=== PATIENT | male | born 1950 | race Caucasian/White ===

== ENCOUNTER 2018-05-24 11:49 | Inpatient (IN) | payer OTHER, MEDICARE ==
[2018-05-24] MEDS ORDERED: NS 1,000 ML IV ONE (13:02)
--- NOTE | 2018-05-24 13:02 | EDPHY ---
H & P Time Seen by Provider: 05/24/18 12:50 HPI/ROS: Chief complaint. Syncope HPI. 67-year-old male presents emergency department by EMS after having syncopal episode. He was at [facility] to have chemotherapy pump removed. The begins 1st week of chemo for throat cancer 5 days ago. He has an aversion to needles. Nurse was removing the pump and noted that there was some pus around the insertion site. He began to feel lightheaded and then had about a 1 min syncopal episode. No chest pain or shortness of breath. He tells me he has not slept very well the last 3 nights secondary to unusual headache. He has headache left-sided neck stiffness. He has no fever cough. He has had previous syncope with shots. 3 large bowel movements this morning which was somewhat unusual. No abdominal pain ROS 10 systems were reviewed and negative with the exception of the elements mentioned in the history of present illness Past Medical/Surgical History: Throat cancer, remote history stomach cancer. Pacemaker for atrial fibrillation Social History: , nonsmoker, no alcohol Smoking Status: Never smoked Physical Exam: General Appearance: Alert well-developed male mild distress. Signs show blood pressure initially to 97 78 Eyes: Pupils equal and round no pallor or injection. ENT, pharynx without injection. Mucous membranes are moist Respiratory: There are no retractions, lungs are clear to auscultation. Cardiovascular: Regular rate and rhythm. Gastrointestinal: Abdomen is soft and nontender, no masses, bowel sounds normal. Neurological: Awake and alert, sensory and motor exams grossly normal. Skin: Warm and dry, no rashes. Musculoskeletal: Left-sided neck stiffness Extremities symmetrical, full range of motion. Psychiatric: Patient is oriented X 3, there is no agitation. Constitutional: Initial Vital Signs Temperature (C) 36.8 C 05/24/18 11:53 Heart Rate 71 05/24/18 11:53 Respiratory Rate 17 05/24/18 11:53 Blood Pressure 97/8 L 05/24/18 11:53 O2 Sat (%) 95 05/24/18 11:53 O2 Delivery Mode Room Air Allergies/Adverse Reactions: Penicillins Allergy (Intermediate, Verified 05/24/18 19:30) Unknown zinc Allergy (Intermediate, Verified 05/24/18 19:30) Vomiting Home Medications: Medication Instructions Recorded Acetaminophen [Tylenol ES 500 mg 1,000 mg PO Q6 PRN 05/24/18 (*)] Chemo 0 mg IV Q14D 05/24/18 Dabigatran Etexilate Mesyl 150 mg PO BID 05/24/18 [Pradaxa 150 MG (*)] Fluticasone Nasal [Flonase Nasal 1 sprays NASAL DAILY 05/24/18 [place] (RX)] Herbals/Supplements -Info Only 1 ea PO DAILY 05/24/18 Lisinopril [Zestril 10 mg (*)] 10 mg PO DAILY 05/24/18 Loperamide HCl [Imodium 2 mg (*)] 2 mg PO PRN PRN 05/24/18 Loratadine [Claritin 10 mg] 10 mg PO DAILY PRN 05/24/18 Propylene Glycol [Systane Balance] 1 drop OP BID PRN 05/24/18 Medical Decision Making - Diagnostics EKG Interpretation: EKG interpreted by me shows atrial fibrillation/flutter with paced rhythm. Left axis deviation. Interventricular conduction delay. No arrhythmia. No significant ST elevation or depression. Ventricular response is 70 Imaging Results: Imaging Impressions Chest X-Ray 05/24/18 13:02 Impression: Moderate enlargement of the cardiac silhouette. No acute cardiopulmonary abnormality identified. Head CT 05/24/18 13:16 Impression: There is no acute intracranial abnormality identified on this unenhanced CT evaluation. If there is further clinical concern regarding the patient's symptoms, MR imaging is suggested, if not otherwise contraindicated. Findings were discussed with ZANA WILKINSON MD at 15:50, on 05/24/2018. Head CTA 05/24/18 13:16 Impression: 1. There is no hemodynamically significant ICA stenosis. 2. Patent vertebral arteries. CT ANGIOGRAPHY OF THE BRAIN: The major vessels of the barrow of [place] are well visualized, and there is no aneurysm, vascular malformation, flow-limiting stenosis, or acute occlusion identified. The distal cervical, petrous, cavernous , and supraclinoid portions of the internal carotid arteries are patent, with some minimal atherosclerotic calcific plaque involving the cavernous carotid arteries and the proximal supraclinoid ICAs. The A1 and A2 segments in the anterior communicating artery are patent as are the M1, M2, and M3 trifurcation vessels. With regards to the posterior circulation, the distal vertebral arteries are patent. The posterior inferior cerebellar arteries, vertebrobasilar confluence, anterior inferior cerebellar arteries, basilar artery, superior cerebellar arteries, and the posterior cerebral arteries are patent. 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 The dural venous sinuses appear patent. Impression: Negative CT angiogram of the brain. CT Source Data: There is a right IJ central venous catheter Mediport present, and there is also a dual-lead left subclavian transvenous pacemaker. There is minimal biapical pleural parenchymal fibrosis and calcification. The visualized lung apices are otherwise unremarkable. The visualized superior mediastinal structures are unremarkable. There is dental amalgam resulting in beam hardening artifact limiting the oral cavity. The thyroid gland appears normal. The epiglottis, hypopharynx, larynx, and trachea appear normal. The salivary glands appear normal. There is a 9 mm left supraclavicular lymph node on series 5, image 198 adjacent to an 11 mm lymph node. At the base of the left neck, there is an irregularly marginated 2.1 x 2.2 cm abnormal-appearing lymph node ( noted on image 56, series 5). There is also left cervical lymphadenopathy which extends more superiorly (for example, on series 5, images 329 and 355). Please also reference coronal series 6, image 68. Correlation with prior studies would be helpful in this patient with a history of "throat cancer." A PET/CT scan may also be of benefit in further evaluation, as clinically directed. The osseous structures are notable for degenerative disk disease at C3-4, C4-C5, C5-C6, and C6-C7, with accompanying facet hypertrophy and uncovertebral degenerative spondylosis resulting in some variable neural foraminal stenoses. There is no lytic or blastic lesion. Measurement of carotid stenosis is based on the residual internal carotid diameter with [place] Symptomatic Carotid Endarterectomy Trial (NASCET) based stenosis levels. Findings were discussed with ZANA WILKINSON MD at 16:23, on 05/24/2018. Neck CTA 05/24/18 13:16 Impression: 1. There is no hemodynamically significant ICA stenosis. 2. Patent vertebral arteries. CT ANGIOGRAPHY OF THE BRAIN: The major vessels of the barrow of [place] are well visualized, and there is no aneurysm, vascular malformation, flow-limiting stenosis, or acute occlusion identified. The distal cervical, petrous, cavernous , and supraclinoid portions of the internal carotid arteries are patent, with some minimal atherosclerotic calcific plaque involving the cavernous carotid arteries and the proximal supraclinoid ICAs. The A1 and A2 segments in the anterior communicating artery are patent as are the M1, M2, and M3 trifurcation vessels. With regards to the posterior circulation, the distal vertebral arteries are patent. The posterior inferior cerebellar arteries, vertebrobasilar confluence, anterior inferior cerebellar arteries, basilar artery, superior cerebellar arteries, and the posterior cerebral arteries are patent. 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 The dural venous sinuses appear patent. Impression: Negative CT angiogram of the brain. CT Source Data: There is a right IJ central venous catheter Mediport present, and there is also a dual-lead left subclavian transvenous pacemaker. There is minimal biapical pleural parenchymal fibrosis and calcification. The visualized lung apices are otherwise unremarkable. The visualized superior mediastinal structures are unremarkable. There is dental amalgam resulting in beam hardening artifact limiting the oral cavity. The thyroid gland appears normal. The epiglottis, hypopharynx, larynx, and trachea appear normal. The salivary glands appear normal. There is a 9 mm left supraclavicular lymph node on series 5, image 198 adjacent to an 11 mm lymph node. At the base of the left neck, there is an irregularly marginated 2.1 x 2.2 cm abnormal-appearing lymph node ( noted on image 56, series 5). There is also left cervical lymphadenopathy which extends more superiorly (for example, on series 5, images 329 and 355). Please also reference coronal series 6, image 68. Correlation with prior studies would be helpful in this patient with a history of "throat cancer." A PET/CT scan may also be of benefit in further evaluation, as clinically directed. The osseous structures are notable for degenerative disk disease at C3-4, C4-C5, C5-C6, and C6-C7, with accompanying facet hypertrophy and uncovertebral degenerative spondylosis resulting in some variable neural foraminal stenoses. There is no lytic or blastic lesion. Measurement of carotid stenosis is based on the residual internal carotid diameter with [place] Symptomatic Carotid Endarterectomy Trial (NASCET) based stenosis levels. Findings were discussed with ZANA WILKINSON MD at 16:23, on 05/24/2018. Noncontrast head CT and CT angiography of brain and neck shows no evidence of dissection or clot. He does have left anterior cervical adenopathy Procedures: No old records available for review IV normal saline, monitor ED Course/Re-evaluation: Potassium is 2.1. Patient will be given potassium and magnesium IV as well as oral potassium Patient remained stable. He and I discussed imaging and lab results. We discussed treatment plan including recommendation for admission for syncope and significant hypokalemia. He expresses understanding and agreement I consulted discussed case Dr. Mills, hospitalist who agrees to the admission Differential Diagnosis: Syncope and I considered acute coronary syndrome and arrhythmia. Patient has significant hypokalemia. He had headache on blood thinners as well as left neck pain. I considered intracranial bleeding and carotid artery dissection - Data Points Laboratory Results: Laboratory Results 05/24/18 14:00 05/24/18 14:39 05/24/18 05/24/18 05/24/18 14:39 14:00 14:00 WBC RBC Hgb Hct MCV MCH MCHC RDW Plt Count MPV Neut % (Auto) Lymph % (Auto) [place] % (Auto) Eos % (Auto) Baso % (Auto) Nucleat RBC Rel Count Absolute Neuts (auto) Absolute Lymphs (auto) Absolute Monos (auto) Absolute Eos (auto) Absolute Basos (auto) Absolute Nucleated RBC Immature Gran % Immature Gran # PT 18.6 SEC H SEC (12.0-15.0) INR 1.54 H (0.83-1.16) APTT 33.4 SEC SEC (23.0-38.0) Sodium 134 mEq/L L mEq/L REJ (135-145) Potassium 2.1 mEq/L L* mEq/L REJ (3.5-5.2) Chloride 94 mEq/L L mEq/L REJ (97-110) Carbon Dioxide 29 mEq/l mEq/l REJ (22-31) Anion Gap 11 mEq/L mEq/L REJ (6-14) BUN 25 mg/dL H mg/dL REJ (7-23) Creatinine 1.5 mg/dL H mg/dL REJ (0.7-1.3) Estimated GFR 47 REJ Glucose 109 mg/dL H mg/dL REJ (70-100) Calcium 8.3 mg/dL L mg/dL REJ (8.5-10.4) POC Troponin I 05/24/18 05/24/18 14:00 13:10 WBC 4.97 10^3/uL 10^3/uL (3.80-9.50) RBC 5.27 10^6/uL 10^6/uL (4.40-6.38) Hgb 17.1 g/dL g/dL (13.7-17.5) Hct 49.5 % % (40.0-51.0) MCV 93.9 fL fL (81.5-99.8) MCH 32.4 pg pg (27.9-34.1) MCHC 34.5 g/dL g/dL (32.4-36.7) RDW 12.6 % % (11.5-15.2) Plt Count 102 10^3/uL L 10^3/uL (150-400) MPV 11.6 fL fL (8.7-11.7) Neut % (Auto) 87.1 % H % (39.3-74.2) Lymph % (Auto) 8.9 % L % (15.0-45.0) [place] % (Auto) 1.8 % L % (4.5-13.0) Eos % (Auto) 0.2 % L % (0.6-7.6) Baso % (Auto) 0.4 % % (0.3-1.7) Nucleat RBC Rel Count 0.0 % % (0.0-0.2) Absolute Neuts (auto) 4.33 10^3/uL 10^3/uL (1.70-6.50) Absolute Lymphs (auto) 0.44 10^3/uL L 10^3/uL (1.00-3.00) Absolute Monos (auto) 0.09 10^3/uL L 10^3/uL (0.30-0.80) Absolute Eos (auto) 0.01 10^3/uL L 10^3/uL (0.03-0.40) Absolute Basos (auto) 0.02 10^3/uL 10^3/uL (0.02-0.10) Absolute Nucleated RBC 0.00 10^3/uL 10^3/uL (0-0.01) Immature Gran % 1.6 % H % (0.0-1.1) Immature Gran # 0.08 10^3/uL 10^3/uL (0.00-0.10) PT INR APTT Sodium Potassium Chloride Carbon Dioxide Anion Gap BUN Creatinine Estimated GFR Glucose Calcium POC Troponin I 0.02 ng/mL ng/mL (0.00-0.08) Medications Given: Potassium Chloride 20 meq/ (Sodium Chloride) 1,000 mls @ 125 mls/hr IV CONT BUFFY Stop: 11/20/18 15:59 Last Admin: 05/24/18 16:30 Dose: 1,000 mls Potassium Chloride (Potassium Cl 10 Meq (Premix)) 100 mls @ 100 mls/hr IV Q1H BUFFY Stop: 05/24/18 20:59 Last Admin: 05/24/18 19:03 Dose: 100 mls Discontinued Medications Sodium Chloride (Ns) 1,000 mls @ 0 mls/hr IV EDNOW ONE; Wide Open PRN Reason: Protocol Stop: 05/24/18 13:03 Last Admin: 05/24/18 13:22 Dose: 1,000 mls Magnesium Sulfate/Dextrose (Magnesium Sulf 1 Gm (Premix)) 100 mls @ 100 mls/hr IV EDNOW ONE Stop: 05/24/18 16:41 Last Admin: 05/24/18 16:52 Dose: 100 mls Potassium Chloride (Klor-Con) 20 meq PO ONCE ONE Stop: 05/24/18 15:43 Last Admin: 05/24/18 16:55 Dose: 20 meq Potassium Chloride (Klor-Con) 20 meq PO ONCE ONE Stop: 05/24/18 19:01 Last Admin: 05/24/18 19:03 Dose: 20 meq Point of Care Test Results: Chemistry 05/24/18 13:10 POC Troponin I 0.02 ng/mL ng/mL (0.00-0.08) Departure - Departure Disposition: [facility] Inpatient Acute Clinical Impression: Hypokalemia Syncope Qualifiers: Syncope type: vasovagal syncope Qualified Code(s): R55 - Syncope and collapse Condition: Good
--- NOTE | 2018-05-24 13:55 | CPEKG ---
Test Reason : OPEN Blood Pressure : / mmHG Vent. Rate : 070 BPM Atrial Rate : 087 BPM P-R Int : 162 ms QRS Dur : 195 ms QT Int : 455 ms P-R-T Axes : 000 -62 119 degrees QTc Int : 491 ms Afib/flutter and ventricular-paced rhythm Confirmed by Zana Veras ([id number]) on 05/24/2018 1:55:09 PM Referred By: ZANA VERAS Confirmed By:Zana Veras
[2018-05-24 14:23] LABS: PLATELET COUNT 102 10^3/uL (150-400)
[2018-05-24 14:31] LABS: INR 1.54 (0.83-1.16); PROTIME(PATIENT) 18.6 SEC (12.0-15.0)
[2018-05-24] MEDS ORDERED: IOHEXOL 350mgI/ML (OMNIPAQUE) 150 ML BTL IV ONE (15:06)
[2018-05-24] MEDS ORDERED: MAGNESIUM SULF 1 GM/DEXTROSE 100 ML IV ONE (15:42)
[2018-05-24] MEDS ORDERED: POTASSIUM CL 20 MEQ TAB PO ONE ×2 (15:42→19:00)
[2018-05-24] MEDS ORDERED: POTASSIUM Cl (KCl) 20 MEQ in 1/2 NS 1,000 ML IV SCH (16:00)
[2018-05-24] MEDS ORDERED: PROTOCOL MAGNESIUM 1 DOSE IV PRN (17:27)
[2018-05-24] MEDS ORDERED: PROTOCOL CALCIUM 1 DOSE IV PRN (17:27)
[2018-05-24] MEDS ORDERED: PROMETHAZINE HCL 25 MG/ML INJ IVP PRN (17:27)
[2018-05-24] MEDS ORDERED: oxyCODONE IR 5 MG TAB PO PRN (17:27)
[2018-05-24] MEDS ORDERED: HYDROmorphONE/DILAUDID 1 MG/ML INJ IVP PRN (17:27)
[2018-05-24] MEDS ORDERED: LORazepam 2 MG/ML INJ IVP PRN (17:27)
[2018-05-24] MEDS ORDERED: ACETAMINOPHEN 325 MG TAB PO PRN (17:27)
[2018-05-24] MEDS ORDERED: PROTOCOL K PHOSPHATE 1 DOSE IV PRN (17:27)
[2018-05-24] MEDS ORDERED: ONDANSETRON 4 MG/2 ML VIAL IVP PRN (17:27)
[2018-05-24] MEDS ORDERED: PROTOCOL POTASSIUM 1 DOSE MISC PRN (17:27)
[2018-05-24] MEDS ORDERED: NON-FORMULARY NEW DRUG (Loratadine [Claritin 10 Mg] 10 MG) PO PRN (17:30)
[2018-05-24] MEDS ORDERED: (Propylene Glycol [Systane Balance] 1 DROP) OP PRN (17:30)
[2018-05-24] MEDS: POTASSIUM Cl (KCl) 100 ML IV SCH ×2 (19:03→20:50)
[2018-05-24] MEDS ORDERED: POTASSIUM CL 10 MEQ TAB PO ONE (19:25)
--- NOTE | 2018-05-24 19:39 | PDGENHP ---
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 Pineda his treatment is for GIST--he did have a biopsy of a cervical LN recently with path showing SCC) for which he has recently started chemotherapy with taxotere, 5FU and marshall. He was previously on imatinib without appropriate response. He was here in [place] for a pump removal for his chemotherapy treatment, he generally gets his care at another [facility] location. While undergoing the pump change there was an introduction of a needle to his port, patient has a needle phobia and shortly after seeing the needle he thought he might faint, he became a bit diaphoretic and his noticed him slump over in his chair. She and he are both unclear if he had a LOC at that time. He was not responsive for about a minute, the MD pay station attendant was notified and he was sent to the ER by ambulance at that point. The patient and his are both somewhat difficult historians but it sounds like patient has been having diarrhea since starting this chemotherapy regimen, he has been taking loperamide for the diarrhea and had one or two days without diarrhea, but again today had 3 large loose stools. He has been eating well, but not drinking as much fluid as usual. He states he has had issues with hiccups and was avoiding drinking too much as it can exacerbate the hiccups. He has had some vomiting yesterday and today. He also has had severe headache for the last several days that was thought to be possibly side effect to his chemo meds or to meds he is taking for nausea. He denies chest pain, he did have palpitations a bit earlier today. He has no sob, no fever, no cough, no urinary complaints. History Information - Allergies/Home Medication List Allergies/Adverse Reactions: Penicillins Allergy (Intermediate, Verified 05/24/18 19:30) Unknown zinc Allergy (Intermediate, Verified 05/24/18 19:30) Vomiting Home Medications: Acetaminophen [Tylenol ES 500 mg (*)] 1,000 mg PO Q6 PRN 05/24/18 [Last Taken 07:00] Chemo 0 mg IV Q14D 05/24/18 [Last Taken 05/22/18] Dabigatran Etexilate Mesyl [Pradaxa 150 MG (*)] 150 mg PO BID 05/24/18 [Last Taken 05/24/18 09:00] Fluticasone Nasal [Flonase Nasal [place] (RX)] 1 sprays NASAL DAILY 05/24/18 [ Last Taken 05/24/18 09:00] Herbals/Supplements -Info Only 1 ea PO DAILY 05/24/18 [Last Taken 05/24/18 08:00 ] Lisinopril [Zestril 10 mg (*)] 10 mg PO DAILY 05/24/18 [Last Taken 05/24/18 09: 00] Loperamide HCl [Imodium 2 mg (*)] 2 mg PO PRN PRN 05/24/18 [Last Taken 05/24/18 09:00] Loratadine [Claritin 10 mg] 10 mg PO DAILY PRN 05/24/18 [Last Taken 05/24/18 09: 00] Propylene Glycol [Systane Balance] 1 drop OP BID PRN 05/24/18 [Last Taken 08:00] I have personally reviewed and updated: family history, medical history, social history, surgical history - Past Medical History atrial fibrillation, arthritis, cancer (hx of stomach cancer, prostate cancer, GIST, ? throat cancer), hypertension - Surgical History Reports: cancer surgery, hernia repair, pacemaker/AICD Additional surgical history: partial gastrectomy for stomach cancer. tonsillectomy - Family History Positive for: non-pertinent - Social History Smoking Status: Never smoked Alcohol Use: Occasionally Drug Use: Marijuana Additional social history: x 45 years, accompanies him here Review of Systems Review of Systems: ROS: 10pt was reviewed & negative except for what was stated in HPI & below Physical Exam Physical Exam: Temp Pulse Resp BP Pulse Ox 36.9 C 70 18 133/88 H 94 05/24/18 16:55 05/24/18 18:30 05/24/18 16:55 05/24/18 16:55 05/24/18 16:55 Constitutional: no apparent distress, chronically ill appearing Eyes: PERRL, anicteric sclera Ears, Nose, Mouth, Throat: moist mucous membranes, hearing normal Cardiovascular: regular rate and rhythym, no murmur, rub, or gallop, No edema Respiratory: no respiratory distress, no rales or rhonchi, clear to auscultation Gastrointestinal: normoactive bowel sounds, soft, non-tender abdomen, no palpable masses Genitourinary: no bladder tenderness Skin: warm, normal color Musculoskeletal: full muscle strength Neurologic: AAOx3 Psychiatric: interacting appropriately, not anxious, not encephalopathic Lab Data & Imaging Review 05/24/18 14:00 05/24/18 18:29 WBC 4.97 10^3/uL (3.80-9.50) 05/24/18 14:00 RBC 5.27 10^6/uL (4.40-6.38) 05/24/18 14:00 Hgb 17.1 g/dL (13.7-17.5) 05/24/18 14:00 Hct 49.5 % (40.0-51.0) 05/24/18 14:00 MCV 93.9 fL (81.5-99.8) 05/24/18 14:00 MCH 32.4 pg (27.9-34.1) 05/24/18 14:00 MCHC 34.5 g/dL (32.4-36.7) 05/24/18 14:00 RDW 12.6 % (11.5-15.2) 05/24/18 14:00 Plt Count 102 10^3/uL (150-400) L 05/24/18 14:00 MPV 11.6 fL (8.7-11.7) 05/24/18 14:00 Neut % (Auto) 87.1 % (39.3-74.2) H 05/24/18 14:00 Lymph % (Auto) 8.9 % (15.0-45.0) L 05/24/18 14:00 [place] % (Auto) 1.8 % (4.5-13.0) L 05/24/18 14:00 Eos % (Auto) 0.2 % (0.6-7.6) L 05/24/18 14:00 Baso % (Auto) 0.4 % (0.3-1.7) 05/24/18 14:00 Nucleat RBC Rel Count 0.0 % (0.0-0.2) 05/24/18 14:00 Absolute Neuts (auto) 4.33 10^3/uL (1.70-6.50) 05/24/18 14:00 Absolute Lymphs (auto) 0.44 10^3/uL (1.00-3.00) L 05/24/18 14:00 Absolute Monos (auto) 0.09 10^3/uL (0.30-0.80) L 05/24/18 14:00 Absolute Eos (auto) 0.01 10^3/uL (0.03-0.40) L 05/24/18 14:00 Absolute Basos (auto) 0.02 10^3/uL (0.02-0.10) 05/24/18 14:00 Absolute Nucleated RBC 0.00 10^3/uL (0-0.01) 05/24/18 14:00 Immature Gran % 1.6 % (0.0-1.1) H 05/24/18 14:00 Immature Gran # 0.08 10^3/uL (0.00-0.10) 05/24/18 14:00 PT 18.6 SEC (12.0-15.0) H 05/24/18 14:00 INR 1.54 (0.83-1.16) H 05/24/18 14:00 APTT 33.4 SEC (23.0-38.0) 05/24/18 14:00 Sodium 134 mEq/L (135-145) L 05/24/18 14:39 Potassium 2.4 mEq/L (3.5-5.2) L* 05/24/18 18:29 Chloride 94 mEq/L (97-110) L 05/24/18 14:39 Carbon Dioxide 29 mEq/l (22-31) 05/24/18 14:39 Anion Gap 11 mEq/L (6-14) 05/24/18 14:39 BUN 25 mg/dL (7-23) H 05/24/18 14:39 Creatinine 1.5 mg/dL (0.7-1.3) H 05/24/18 14:39 Estimated GFR 47 05/24/18 14:39 Glucose 109 mg/dL (70-100) H 05/24/18 14:39 Calcium 8.3 mg/dL (8.5-10.4) L 05/24/18 14:39 POC Troponin I 0.02 ng/mL (0.00-0.08) 05/24/18 13:10 Visualized and Interpreted Chest x-ray results: Yes Chest X-Ray results: no infiltrate Visualized and Interpreted imaging results: Yes Interpretation: head CT/head and neck CTA: no acute abnormality in head, no significant stenosis, cervical LAD and one irregular appearing LN Visualized and Interpreted EKG results: Yes EKG additional interpertation: a fib/flutter and v paced Assessment & Plan Assessment: 67 yo M with PMH of GIST tumor currently undergoing chemotherapy with taxotere, 5 FU and marshall with recent diarrhea related to 5FU likely presenting with vasovagal episode and severe hypokalemia # severe hypokalemia: in setting of several days or longer of diarrhea per oncology, repleting currently, will continue to monitor, getting IV Magnesium and will monitor mag levels as well # vasovagal episode: occurred in the setting of medical procedure with needles being a trigger for him, did become hypotensive during that episode as well which has resolved, will monitor on tele as well but suspect this is most c/w a vagal event rather than a primary cardiac etiology # emily: presumably this is acute in the setting of diarrhea although no recent BMP found on corhio, will run NS overnight and monitor I/Os and recheck in am, holding lisinopril # diarrhea: likely due to chemo as above, doubt c diff but if increases will send for that # GIST tumor: currently undergoing chemo as above, discussed with Dr. Pineda, oncology will be following and will see in am # a fib: with PPM, on AC, rate controlled # hx of stomach and prostate cancer # HTN: BP has been largely wnl but some lability and did get very low at [facility] today with vagal episode, holding lisinopril and monitoring # IP status Patient new to my care. Old records reviewed and summarized as above. Care plan reviewed with ER doctor and Dr. Pineda, further hx obtained from present at bedside.
[2018-05-24] MEDS: LORazepam 0.5 MG TAB PO PRN ×2 (20:46→22:01)
[2018-05-24] MEDS: ONDANSETRON DISINTEGRATING 4 MG TAB PO PRN (20:48)
[2018-05-24] MEDS: DABIGATRAN ETEXILATE MESYL 150 MG CAP PO SCH (20:48)
[2018-05-24] MEDS: NS 1,000 ML IV SCH (20:51)
[2018-05-24] MEDS: HYDROCODONE/APAP 5/325 TAB PO PRN ×2 (23:12→23:39)
[2018-05-25] MEDS ORDERED: POTASSIUM CL 20 MEQ TAB PO ONE (02:09)
[2018-05-25] MEDS: NS 1,000 ML IV SCH (03:05)
[2018-05-25] MEDS ORDERED: LISINOPRIL 10 MG TAB PO SCH (09:00)
[2018-05-25 09:25] LABS: PLATELET COUNT 108 10^3/uL (150-400)
[2018-05-25] MEDS: DABIGATRAN ETEXILATE MESYL 150 MG CAP PO SCH ×2 (09:32→20:44)
--- NOTE | 2018-05-25 09:37 | PDMN ---
Medical Necessity Medical necessity: [facility] Medical Oncology: 67 yo w/ GIST currently on chemo c/o several days diarrhea and syncope. Eval reveals severe hypokalemia w/ K 2.1 , CHAPO w/ creat 1.5. IP status for dehydration w/ severe electrolyte imbalance, replacements started, IVF, monitor on tele, anticipate>2MN for monitoring and tx of the above. Hx afib, stomach ca, prostate ca, GIST currently getting tx w / chemo, HTN, pacer
[2018-05-25] MEDS ORDERED: POTASSIUM CL 10 MEQ TAB PO ONE ×2 (10:08→20:20)
[2018-05-25] MEDS ORDERED: CALCIUM GLUCONATE 50 ML IV ONE (10:21)
[2018-05-25] MEDS: FLUTICASONE NASAL 120 SPRAYS/16 GM MDI EACHNARE SCH (10:22)
[2018-05-25] MEDS: MBX SOLN 30 ML BOTTLE PO PRN ×3 (12:18→19:39)
--- NOTE | 2018-05-25 12:26 | ASMTCMCOM ---
CM Note CM Note Notes: Patient admitted after likely vasovagal event while at [facility]. 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 He lives with his Martha and is normally indepdendent. PT has cleared for home. No d/c needs. Date Signed: 05/25/2018 12:25 PM Electronically Signed By:Swapna Bellamy RN
[2018-05-25] MEDS: CETIRIZINE 10 MG TAB PO PRN (14:16)
[2018-05-25] MEDS: ONDANSETRON DISINTEGRATING 4 MG TAB PO PRN (14:16)
--- NOTE | 2018-05-25 17:59 | HOSPPROG ---
Hospitalist Progress Note Assessment/Plan: 67 yo M with PMH of GIST tumor currently undergoing chemotherapy with taxotere, 5 FU and [place] with recent diarrhea related to 5FU likely presenting with vasovagal episode and severe hypokalemia. 1. Severe hypokalemia: Improving with supplementation but still low and not eating much - Replete per protocol, follow Mg levels as well 2. Vasovagal episodes - PT/OT - recommending home 3. CHAPO: Improving with fluids. Monitor. 4. Contact dermatitis: Involving right chest. Removed tape. 5. Loose stools: Only a few. Likely chemo related. Will hold on checking C diff. 6. Leukopenia, thrombocytopenia: Related to chemo. 7. GIST tumor: Followed by [facility]. Oncology consulted this admission. 8. Afib: Rates controlled. On OAC. 9. HTN: Holding lisinopril. 10. Etoh use: Was weaning himself off as outpt. 5-6 drinks/night previously. Not in withdrawal. 11. Headache: Trial flexeril with sleep. Likely d/t dehydration and stress. 12. Urinary frequency: UA without infection. Check PVR VTE ppx: systemic anticoagulation Code: full Dispo: Remain inpatient for close monitoring of electrolytes Subjective: Had another episode of LOC when getting IV in arm. Not eating a lot. Couple episodes of loose stools. Objective: Vital Signs Temp Pulse Resp BP Pulse Ox 37.3 C 70 18 143/86 H 92 05/25/18 16:00 05/25/18 16:00 05/25/18 16:00 05/25/18 16:00 05/25/18 16:00 Laboratory Results 05/25/18 08:05 05/25/18 16:02 05/24/18 05/25/18 05/26/18 05:59 05:59 05:59 Intake Total 3450 Output Total 1000 925 Balance 2450 -925 PT 18.6 SEC (12.0-15.0) H 05/24/18 14:00 INR 1.54 (0.83-1.16) H 05/24/18 14:00 - Physical Exam Constitutional: no apparent distress Eyes: PERRL, anicteric sclera, EOMI Ears, Nose, Mouth, Throat: moist mucous membranes, hearing normal, ears appear normal, no oral mucosal ulcers Cardiovascular: regular rate and rhythym, no murmur, rub, or gallop Respiratory: no respiratory distress, no rales or rhonchi, clear to auscultation Gastrointestinal: normoactive bowel sounds, soft, non-tender abdomen, no palpable masses Genitourinary: no bladder fullness, no bladder tenderness, no renal bruits Skin: rash (right chest), other (port c/d/i) Musculoskeletal: full muscle strength, no muscle tenderness, normal joint ROM Neurologic: AAOx3, sensation intact bilaterally ICD10 Worksheet Patient Problems: Problems Problem Status Onset Hypokalemia Acute Syncope Acute
[2018-05-25] MEDS: CYCLOBENZAPRINE 10 MG TAB PO SCH (20:44)
--- NOTE | 2018-05-25 21:36 | PDCONSULT ---
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 An FNA of the cervical lymph node biopsy on was positive for HPV associated squamous cell carcinoma. Given the locally advanced nature decision was made to start with that TPF induction chemotherapy with weekly IV fluids and magnesium. He started TPF induction chemotherapy on 03/18/2019 his magnesium on 03/17/2019 was 1.6. Shortly after starting chemotherapy he began having severe headaches with dizziness. He is also reporting some intermittent episodes of loose stool but no more than 3 bowel movements in any particular day. He has had difficulties with his bowels ever since being on Gleevec, in the past adjuvantly, for a gist tumor diagnosed in 2012 and therefore takes immodium off and on. Beyond these headaches and bouts of diarrhea/loose stool he is also had periods of decreased oral intake as well as polyuria most significantly affecting him at night. He is not on any diuretics however has a significant drinking history and decreased alcohol intake roughly 1 week or so ago. Patient went to have his 5-FU pump disconnected Friday at [facility]. 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 Physician was called to the infusion room and after placing him in reverse Trendelenburg position he regained consciousness. He was sent via ambulance to [facility] where he was found to be hypokalemic and hypomagnesemic. Patient currently reports feeling well he does not have a headache, no dizziness or lightheadedness. He has not had a bowel movement yet today. No other systemic symptoms. Past medical history: Hypertension Atrial fibrillation History of T3 N0 gist tumor diagnosed 01/26/2013 treated with adjuvant Gleevec History of alcohol abuse/alcoholism Past surgical history: Hernia Repair Partial Gastrectomy for GIST tumor removal Tonsillectomy Social History: Patient reports having 5-6 alcoholic beverages per evening up until quitting roughly 1 week ago. No history of IV drug use Family History: Father - pancreatic CA Paternal Aunt - stomach cancer Review of Systems: A complete 12 point ROS was negative unless indicated in the HPI Physical examination: Vital signs reviewed General: No acute distress nontoxic appearing male HEENT: Pupils are equal round and reactive to light no scleral icterus or conjunctival pallor is appreciated oral mucosa is moist without any evidence of oral pharyngeal lesions Neck: Supple Cardiovascular: Regular rate and rhythm without rubs thrills gallops or murmurs Chest: Clear to auscultation percussion bilateral posterior lungs Abdomen: Soft nontender nondistended without any hepatosplenomegaly Lymph: 2.5 centimeter left posterior cervical hard fixed lymph node was palpated Neurologic: Alert and oriented cranial nerves II through XII are intact Skin: patchy erythema extending from the right chest wall port towards the right neck Allergies and Medications Reviewed in EMR WBC 2.58 10^3/uL (3.80-9.50) L 05/25/18 08:05 RBC 4.55 10^6/uL (4.40-6.38) 05/25/18 08:05 Hgb 14.6 g/dL (13.7-17.5) 05/25/18 08:05 Hct 42.7 % (40.0-51.0) 05/25/18 08:05 MCV 93.8 fL (81.5-99.8) 05/25/18 08:05 MCH 32.1 pg (27.9-34.1) 05/25/18 08:05 MCHC 34.2 g/dL (32.4-36.7) 05/25/18 08:05 RDW 12.5 % (11.5-15.2) 05/25/18 08:05 Plt Count 108 10^3/uL (150-400) L 05/25/18 08:05 MPV 11.4 fL (8.7-11.7) 05/25/18 08:05 Neut % (Auto) 66.3 % (39.3-74.2) 05/25/18 08:05 Lymph % (Auto) 24.8 % (15.0-45.0) 05/25/18 08:05 [place] % (Auto) 2.7 % (4.5-13.0) L 05/25/18 08:05 Eos % (Auto) 2.3 % (0.6-7.6) 05/25/18 08:05 Baso % (Auto) 1.6 % (0.3-1.7) 05/25/18 08:05 Nucleat RBC Rel Count 0.0 % (0.0-0.2) 05/25/18 08:05 Absolute Neuts (auto) 1.71 10^3/uL (1.70-6.50) 05/25/18 08:05 Absolute Lymphs (auto) 0.64 10^3/uL (1.00-3.00) L 05/25/18 08:05 Absolute Monos (auto) 0.07 10^3/uL (0.30-0.80) L 05/25/18 08:05 Absolute Eos (auto) 0.06 10^3/uL (0.03-0.40) 05/25/18 08:05 Absolute Basos (auto) 0.04 10^3/uL (0.02-0.10) 05/25/18 08:05 Absolute Nucleated RBC 0.00 10^3/uL (0-0.01) 05/25/18 08:05 Immature Gran % 2.3 % (0.0-1.1) H 05/25/18 08:05 Immature Gran # 0.06 10^3/uL (0.00-0.10) 05/25/18 08:05 PT 18.6 SEC (12.0-15.0) H 05/24/18 14:00 INR 1.54 (0.83-1.16) H 05/24/18 14:00 APTT 33.4 SEC (23.0-38.0) 05/24/18 14:00 Sodium 133 mEq/L (135-145) L 05/25/18 08:05 Potassium 3.4 mEq/L (3.5-5.2) L 05/25/18 18:35 Chloride 105 mEq/L (97-110) 05/25/18 08:05 Carbon Dioxide 23 mEq/l (22-31) 05/25/18 08:05 Anion Gap 5 mEq/L (6-14) L 05/25/18 08:05 BUN 19 mg/dL (7-23) 05/25/18 08:05 Creatinine 1.1 mg/dL (0.7-1.3) 05/25/18 08:05 Estimated GFR > 60 05/25/18 08:05 Glucose 91 mg/dL (70-100) 05/25/18 08:05 Calcium 7.7 mg/dL (8.5-10.4) L 05/25/18 08:05 Ionized Calcium 0.99 MMOL/L (1.12-1.30) L 05/25/18 08:05 Phosphorus 2.8 mg/dL (2.5-4.5) 05/25/18 08:05 Magnesium 2.0 mg/dL (1.6-2.3) 05/25/18 08:05 POC Troponin I 0.02 ng/mL (0.00-0.08) 05/24/18 13:10 Urine Color YELLOW 05/25/18 15:45 Urine Appearance CLEAR 05/25/18 15:45 Urine pH 6.0 (5.0-7.5) 05/25/18 15:45 Ur Specific [place] 1.015 (1.002-1.030) 05/25/18 15:45 Urine Protein 1+ (NEGATIVE) H 05/25/18 15:45 Urine Ketones TRACE (NEGATIVE) H 05/25/18 15:45 Urine Blood 1+ (NEGATIVE) H 05/25/18 15:45 Urine Nitrate NEGATIVE (NEGATIVE) 05/25/18 15:45 Urine Bilirubin NEGATIVE (NEGATIVE) 05/25/18 15:45 Urine Urobilinogen NEGATIVE EU (0.2-1.0) 05/25/18 15:45 Ur Leukocyte Esterase NEGATIVE (NEGATIVE) 05/25/18 15:45 Urine RBC 3-5 /hpf (0-3) H 05/25/18 15:45 Urine WBC 1-3 /hpf (0-3) 05/25/18 15:45 Ur Epithelial Cells NONE SEEN /lpf (NONE-1+) 05/25/18 15:45 Urine Glucose 1+ (NEGATIVE) H 05/25/18 15:45 Assessment and plan: Patient is a 67-year-old male with a recent diagnosis of 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 Problem #1 vasovagal syncope Patient has a known phobia regarding needles and subsequently became cool and clammy diaphoretic after removal of the needle from his port. This may have been exacerbated by hypovolemia in the setting of decreased p.o. intake, large volume stool output, and electrolyte abnormalities. Problem #2 electrolyte abnormalities Patient was admitted with severe hypokalemia, hypomagnesemia and hypocalcemia. 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 -Agree with aggressive IV electrolyte repletion the patient will likely need oral maintenance potassium and magnesium. -Recommend urinalysis and postvoid residual given reports of nocturia and urinary frequency. -Recommend ongoing reasonable Imodium usage for diarrhea We will continue to follow along with the patient.
[2018-05-25] MEDS: HYDROCODONE/APAP 5/325 TAB PO PRN (21:51)
[2018-05-25] MEDS: LORazepam 0.5 MG TAB PO PRN (21:51)
[2018-05-26] MEDS ORDERED: MAGNESIUM OXIDE 400 MG TAB PO ONE (05:27)
[2018-05-26] MEDS ORDERED: POTASSIUM CL 20 MEQ TAB PO ONE (05:27)
[2018-05-26] MEDS ORDERED: CALCIUM GLUCONATE 50 ML IV ONE (05:29)
--- NOTE | 2018-05-26 07:56 | CPEKG ---
Test Reason : OPEN Blood Pressure : / mmHG Vent. Rate : 074 BPM Atrial Rate : 000 BPM P-R Int : 046 ms QRS Dur : 197 ms QT Int : 441 ms P-R-T Axes : 000 -70 109 degrees QTc Int : 490 ms Ventricular-paced rhythm Confirmed by Manuel Galindo ([id number]) on 05/26/2018 7:56:32 AM Referred By: Lorene Mills Confirmed By:Manuel Galindo
[2018-05-26] MEDS ORDERED: POTASSIUM CL 10 MEQ TAB PO ONE ×2 (09:01→19:42)
[2018-05-26] MEDS ORDERED: SIMETHICONE 80 MG TAB CHEW PO PRN (10:40)
--- NOTE | 2018-05-26 10:44 | HOSPPROG ---
Hospitalist Progress Note Assessment/Plan: 67 yo M with PMH of GIST tumor currently undergoing chemotherapy with taxotere, 5 FU and [place] with recent diarrhea related to 5FU likely presenting with vasovagal episode and severe hypokalemia. 1. Ventricular tachycardia: Up to 96 beats (40 seconds) around 4:30am. He was asymptomatic. - Aggressive electrolyte repletion, goal K>4 and Mg>2, will recheck at noon - Pacemaker interrogation - If not resolving after electrolyte normalization, will further discuss with cardiology 2. Synopal episodes: History c/w vagal events but above concerning for arrhythmia - Interrogating pacer as above to correlate - PT/OT recommending home 3. Severe hypokalemia: K 2.1 on admit, now low 3s - Repleting as above 4. Diarrhea: Persistent. Chemo side effect vs infectious - Check C diff PCR 5. CHAPO: Improved with fluids. Monitor. 6. Contact dermatitis: Involving right chest. Removed tape. 7. Leukopenia, thrombocytopenia: Related to chemo, stable. 8. GIST tumor: Followed by [facility]. Oncology consulted this admission. 9. Afib: Rates controlled. On OAC. S/p ablation and pacemaker placement. 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 10. HTN: Holding lisinopril. 11. Etoh use: Was weaning himself off as outpt. 5-6 drinks/night previously. Not in withdrawal. 12. Headache: Trial flexeril with sleep. Likely d/t dehydration and stress. 13. Urinary frequency: UA without infection. Check PVR VTE ppx: systemic anticoagulation Code: full Dispo: Remain inpatient for close cardiac monitoring. Instructed him to call his oncologist office and re-schedule appointment that was this afternoon. Subjective: Several runs of asymptomatic VT overnight, as long as 40 seconds around 430am. Still having loose stools. Objective: Vital Signs Temp Pulse Resp BP Pulse Ox 37.2 C 70 15 134/90 H 91 L 05/26/18 08:00 05/26/18 08:00 05/26/18 08:00 05/26/18 08:00 05/26/18 08:00 Laboratory Results 05/25/18 08:05 05/26/18 03:25 05/25/18 05/26/18 05/27/18 05:59 05:59 05:59 Intake Total 3450 925 Output Total 1000 925 Balance 2450 0 PT 18.6 SEC (12.0-15.0) H 05/24/18 14:00 INR 1.54 (0.83-1.16) H 05/24/18 14:00 - Physical Exam Constitutional: no apparent distress, appears nourished, not in pain Eyes: PERRL, anicteric sclera, EOMI Ears, Nose, Mouth, Throat: moist mucous membranes, hearing normal, ears appear normal, no oral mucosal ulcers Cardiovascular: regular rate and rhythym, no murmur, rub, or gallop, No edema Respiratory: no respiratory distress, no rales or rhonchi, clear to auscultation Gastrointestinal: normoactive bowel sounds, soft, non-tender abdomen, no palpable masses Genitourinary: no bladder fullness, no bladder tenderness, no renal bruits Skin: other (contact dermatitis on right chest, port c/d/i) Musculoskeletal: full muscle strength, no muscle tenderness, normal joint ROM Neurologic: AAOx3 Psychiatric: interacting appropriately ICD10 Worksheet Patient Problems: Problems Problem Status Onset Hypokalemia Acute Syncope Acute
[2018-05-26] MEDS: DABIGATRAN ETEXILATE MESYL 150 MG CAP PO SCH ×2 (11:21→20:11)
[2018-05-26] MEDS: MBX SOLN 30 ML BOTTLE PO PRN ×2 (11:22→19:03)
[2018-05-26] MEDS: LISINOPRIL 10 MG TAB PO SCH (11:30)
--- NOTE | 2018-05-26 11:57 | SOAPPROG ---
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 Problem #1 vasovagal syncope Patient has a known phobia regarding needles and subsequently became cool and clammy diaphoretic after removal of the needle from his port. This may have been exacerbated by hypovolemia in the setting of decreased p.o. intake, large volume stool output, and electrolyte abnormalities. Problem #2 electrolyte abnormalities Patient was admitted with severe hypokalemia, hypomagnesemia and hypocalcemia. 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 -continue aggressive oral potassium replacement (can't tolerate IV), would likely avoid oral mag given diarrhea -would try immodium as needed for diarrhea -could consider remeron or olanzapine for appetite/nausea Problem #3 Thrush -would prescribe oral nystatin We will continue to follow along with the patient. Plan: 05/26/18 11:54 05/26/18 11:57 Subjective: patient reports feeling fair. he had maybe 8 BMs in last 24 hours. received ~ 110meq of KCL in 24 hours, mainly oral as he is not tolerating IV although he had some dry heaves today with oral potassium. Not eating or drinking well Objective: Vital Signs Temp Pulse Resp BP Pulse Ox 37.2 C 70 15 134/90 H 91 L 05/26/18 08:00 05/26/18 08:00 05/26/18 08:00 05/26/18 08:00 05/26/18 08:00 Laboratory Results 05/25/18 08:05 05/26/18 03:25 05/25/18 05/26/18 05/27/18 05:59 05:59 05:59 Intake Total 3450 925 Output Total 1000 925 Balance 2450 0 PT 18.6 SEC (12.0-15.0) H 05/24/18 14:00 INR 1.54 (0.83-1.16) H 05/24/18 14:00 ICD10 Worksheet Patient Problems: Problems Problem Status Onset Hypokalemia Acute Syncope Acute
[2018-05-26] MEDS ORDERED: POTASSIUM CL 20 MEQ/15 ML UDCUP PO ONE (13:26)
[2018-05-26] MEDS: FLUTICASONE NASAL 120 SPRAYS/16 GM MDI EACHNARE SCH (15:00)
[2018-05-26] MEDS: NYSTATIN SUSP 500000 UNIT/5 ML UD LIQ PO SCH ×3 (15:01→20:11)
[2018-05-26] MEDS: CETIRIZINE 10 MG TAB PO PRN (15:01)
[2018-05-26] MEDS ORDERED: POTASSIUM CL 10 MEQ TAB ONE (15:09)
[2018-05-26] MEDS: HYDROCODONE/APAP 5/325 TAB PO PRN ×2 (15:10→22:12)
[2018-05-26] MEDS: ONDANSETRON DISINTEGRATING 4 MG TAB PO PRN (15:10)
[2018-05-26] MEDS ORDERED: LOPERAMIDE HCL 2 MG CAP ONE (17:40)
[2018-05-26] MEDS: LOPERAMIDE HCL 2 MG CAP PO PRN ×3 (18:05→22:12)
[2018-05-26] MEDS: CYCLOBENZAPRINE 10 MG TAB PO SCH (20:11)
[2018-05-26] MEDS: LORazepam 0.5 MG TAB PO PRN (22:11)
[2018-05-27] MEDS: NYSTATIN SUSP 500000 UNIT/5 ML UD LIQ PO SCH ×5 (07:25→21:10)
--- NOTE | 2018-05-27 09:25 | HOSPPROG ---
Hospitalist Progress Note Assessment/Plan: 67 yo M with PMH of GIST tumor currently undergoing chemotherapy with taxotere, 5 FU and [place] with recent diarrhea related to 5FU presenting with syncope found to have severe hypokalemia. Hospital course complicated by VT and now neutropenic fevers. 1. Ventricular tachycardia: Device interrogated, VT going back to April 09. Still with VT overnight despite K, Mg improving (although still not normal). - Started on metoprolol - Cardiology consulted - TTE shows wall motion abnormalities and reduced LVEF, thus increasing concern for ischemia-mediated VT - Plan for coronary angiography this afternoon - Aggressive electrolyte repletion, goal K>4 and Mg>2 2. Neutropenic fever: Port site is concerning for source. Alternatively, could be related to mucositis vs gut translocation with recent diarrhea. - Blood cultures - Beginning IV vancomycin, cefepime 2g q8h - Oncology aware 3. Synopal episodes: History c/w vagal events but above concerning for arrhythmia 4. Severe hypokalemia: Both GI and renal losses (urine K very high). The latter is likely a phenomena of his cisplatin therapy (fanconi-like syndrome). - Repleting as above 5. Diarrhea: Persistent. C diff negative. Likely chemo side effect - Loperamide PRN 5. CHAPO: Improved with fluids. Monitor. 6. Contact dermatitis: Involving right chest. Removed tape. 7. Thrombocytopenia: Related to chemo, stable. 8. GIST tumor: Followed by [facility]. Oncology consulted this admission. 9. Afib: Rates controlled. On OAC. S/p ablation and pacemaker placement. 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 10. HTN: Holding lisinopril. 11. Etoh use: Was weaning himself off as outpt. 5-6 drinks/night previously. Not in withdrawal. 12. Headache: Trial flexeril with sleep. Likely d/t dehydration and stress. 13. Urinary frequency: UA without infection. VTE ppx: systemic anticoagulation Code: full Dispo: Remain inpatient for cardiac work up, close electrolyte monitoring, management of neutropenic fever. Subjective: Loose stools have slowed. Thinks he had another episode of palpitations while trying to fall asleep last night. Denies chest pain. Telemetry shows run of VT around 1030pm last night. He is fevering this afternoon. Frustrated that he's still in the hospital. Objective: Vital Signs Temp Pulse Resp BP Pulse Ox 37.7 C 70 12 155/96 H 90 L 05/27/18 08:00 05/27/18 08:00 05/27/18 08:00 05/27/18 08:00 05/27/18 08:00 Laboratory Results 05/27/18 03:36 05/27/18 03:36 05/26/18 05/27/18 05/28/18 05:59 05:59 05:59 Intake Total 925 1350 Output Total 925 595 Balance 0 755 PT 18.6 SEC (12.0-15.0) H 05/24/18 14:00 INR 1.54 (0.83-1.16) H 05/24/18 14:00 - Physical Exam Constitutional: no apparent distress Eyes: PERRL, anicteric sclera Ears, Nose, Mouth, Throat: other (mucositis) Cardiovascular: regular rate and rhythym, no murmur, rub, or gallop, No edema Respiratory: no respiratory distress, no rales or rhonchi, clear to auscultation Gastrointestinal: normoactive bowel sounds, soft, non-tender abdomen, no palpable masses Genitourinary: no bladder fullness, no bladder tenderness, no renal bruits Skin: warm, other (port slightly red) Musculoskeletal: full muscle strength Neurologic: AAOx3, sensation intact bilaterally Psychiatric: interacting appropriately ICD10 Worksheet Patient Problems: Problems Problem Status Onset Hypokalemia Acute Syncope Acute
[2018-05-27] MEDS: CALCIUM GLUCONATE 50 ML IV ONE ×2 (09:39→12:42)
[2018-05-27] MEDS: MAGNESIUM SULF 1 GM/DEXTROSE 100 ML IV ONE ×2 (09:39→13:28)
[2018-05-27] MEDS: LISINOPRIL 10 MG TAB PO SCH ×2 (09:40→18:41)
[2018-05-27] MEDS: FLUTICASONE NASAL 120 SPRAYS/16 GM MDI EACHNARE SCH (09:40)
[2018-05-27] MEDS: DABIGATRAN ETEXILATE MESYL 150 MG CAP PO SCH ×4 (09:40→23:54)
[2018-05-27] MEDS: POTASSIUM CL 10 MEQ TAB PO ONE ×2 (09:40→18:40)
--- NOTE | 2018-05-27 15:06 | ECHO ---
[email or web address] [address] [address] Main: [phone] Fax: [email or web address] Echocardiogram Name: DONG CRAIN MR#: [id number] Study Date: 05/27/2018 Study Time: 01:54 PM Date of : 1950 Age: 67 year(s) Height: 172.7 cm (68 in.) Weight: 81.65 kg (180 lb.) BSA: 1.95 m2 Gender: Male Examination: Echo Indication: Ventricular tachycardia Image Quality: Good Contrast: Requested by: Hayden Bejarano BP: 131 mmHg/85 mmHg Heart Rate: Rhythm: Indication: Ventricular tachycardia Procedure Staff Sample Sawyer: Ead Sorto [facility] Reading Physician: Hayden Bejarano MD Requesting Provider: Conclusions: Moderately dilated left ventricle. No LV hypertrophy. The ejection fraction is visually estimated to be 40 %. The basal anteroseptal, basal inferior, basal inferolateral, basal anterolateral, mid anteroseptal, mid inferior, mid inferolateral and mid anterolateral Cannot rule out apical thrombus. LV septal motion consistent with conduction abnormality. LV inferior wall appears hypokinetic. LV apex appears akinetic.. Normal size right ventricle. Mild to moderate mitral regurgitation. The pulmonary artery pressure is normal. RVSP is 24mmHG.. Mildly dilated ascending aorta measuring 4.2 cm. No pericardial effusion. Measurements: Chambers Valvular Assessment AV/MV Valvular Assessment TV/PV Normal Normal Normal Name Value Range Name Value Range Name Value Range Ao Deborah (MM): 3.5 cm (2.2 cm-3.7 AV Vmax: 1.93 m/s (1 m/s-1.7 TR Vmax: 2.20 mm/s ( - ) cm) m/s) TR PGmax: 19 mmHg ( - ) IVSd (2D): 0.9 cm (0.6 cm-1.1 AV meanP mmHg ( - ) syst. PAP: 24 mmHg ( - ) cm) CHAD (VTI): 2.5 cm ( - ) LVDd (2D): 6.1 cm (4.2 cm-5.9 MV E Vmax: 0.95 m/s ( - ) cm) MV A Vmax: 0.29 m/s ( - ) LVPWd (2D): 0.9 cm (0.6 cm-1 MV E/A: 3.28 ( - ) cm) MV meanP mmHg ( - ) LVOTd 2.3 cm 2.3 cm mm MVA (Vmax): 3.1 m/s ( - ) LVEF (BP): 53 % (>=55 %) Visual EF: 40 % Patient: DONG CRAIN Study Date: 05/27/2018 Page 1 of 3 01:54 PM Continued Measurements: Chambers Valvular Assessment AV/MV Valvular Assessment TV/PV Name Value Name Value Name Value LADs: 4.9 cm MV Annulus: 4.1 cm CVP (est.): 5 mmHg LADs Lon.0 cm MV E' Septal: 0.08 m/s LA Area: 29.8 cm2 MV E/E' Septal: 11.80 LA Volume: 108 ml MV E/E' Lateral: 9.20 LA Volume Index: 55.4 ml/m2 MV VTI: 23.50 cm MR ERO: 0.340 cm2 MR PISA radius: 8 mm MR Reg. Volume: 54 ml MR Reg. Fraction: 17 % Additional Vessels Name Value Ao Ascendin.2 cm Findings: Left Ventricle: Moderately dilated left ventricle. No LV hypertrophy. The ejection fraction is visually estimated to be 40 %. The basal anteroseptal, basal inferior, basal inferolateral, basal anterolateral, mid anteroseptal, mid inferior, mid inferolateral and mid anterolateral wall segments are hypokinetic. The apical septal, apical lateral and apex wall segments are dyskinetic. All remaining scored wall segments are normal. Normal diastolic LV function. Cannot rule out apical thrombus. LV septal motion consistent with conduction abnormality. LV inferior wall appears hypokinetic. LV apex appears akinetic.. Right Ventricle: Normal size right ventricle. There is a pacemaker lead noted in the right ventricle. Left Atrium: The left atrium is severely dilated. Right Atrium: The right atrium is severely dilated. Mitral Valve: The mitral valve is normal in appearance and function. Moderate mitral annular calcification. Mild to moderate mitral regurgitation. No mitral stenosis is present. Aortic Valve: The aortic valve is tri-leaflet. Mild aortic cusp calcification is noted. Trivial aortic valve regurgitation. No aortic valve stenosis is present. Tricuspid Valve: The tricuspid valve is normal in appearance and function. Mild tricuspid regurgitation is present. The pulmonary artery pressure is normal. RVSP is 24mmHG.. Pulmonic Valve: The pulmonic valve is normal in appearance and function. Trivial pulmonic valve regurgitation. Aorta: The aorta is normal. Mildly dilated ascending aorta measuring 4.2 cm. Pericardium: No pericardial effusion. (No Signature Object) Wall Motion Scores Patient: DONG CRAIN Study Date: 05/27/2018 Page 2 of 3 01:54 PM -1 - Not Scored, 0 - Unknown, 1 - Normal or hyperkinesia, 2 - Hypokinesia, 3 - Akinesia, 4 - Dyskinesia, 5 - Aneurysm Patient: DONG CRAIN Study Date: 05/27/2018 Page 3 of 3 01:54 PM [id number]
[2018-05-27] MEDS ORDERED: PERFLUTREN LIPID MICROSPHERES 1.1 MG/ML VIAL IV ONE (15:15)
[2018-05-27] MEDS ORDERED: NITROGLYCERIN 0.4 MG BTL SL PRN (15:25)
[2018-05-27] MEDS ORDERED: TEMAZEPAM 15 MG CAP PO PRN (15:25)
[2018-05-27] MEDS ORDERED: FAMOTIDINE 20 MG TAB PO ONE (15:25)
[2018-05-27] MEDS ORDERED: DIAZEPAM 5 MG TAB PO ONE (15:25)
[2018-05-27] MEDS ORDERED: NS 1,000 ML IV SCH (15:30)
--- NOTE | 2018-05-27 15:30 | PDPROPOC ---
Sedation Plan of Care Sedation Plan of Care: vital signs stable, mental status noted, patient educated of risks, benefits, alternatives, patient can tolerate sedation ASA Classification: ASA 4 Planned drugs: fentanyl, midazolam Mallampati Score: Class 2 Mallampati Reference Image: Patient passed 3-3-2 rule?: Yes
--- NOTE | 2018-05-27 15:36 | PDHPUP ---
History & Physical Update H&P update statement: This history and physical update is based on an assessment of the patient which was completed after admission or registration (within 24 hours), but prior to the surgery/procedure. H&P update: H&P reviewed & patient examined, changes noted H&P changes: There are new echocardiographic changes suggestive of possible ischemia. Needs cath per Dr. Bejarano CCS Class IV with high risk echocardiogram abormal resting nuc considered high risk...
[2018-05-27] MEDS ORDERED: HEPARIN 10,000 UNIT/10 ML MDV (1,000 UNIT/ML) ONE (15:43)
[2018-05-27] MEDS ORDERED: fentaNYL 100 MCG/2 ML INJ ONE ×2 (15:43→16:06)
[2018-05-27] MEDS ORDERED: IOPAMIDOL (ISOVUE-370) 150 ML BTL IV ONE ×2 (15:43→16:07)
[2018-05-27] MEDS ORDERED: LIDOCAINE 1% 300 MG/30 ML SDV ONE ×2 (15:43→16:06)
[2018-05-27] MEDS ORDERED: MIDAZOLAM 2 MG/2 ML VIAL ONE ×2 (15:43→16:06)
[2018-05-27] MEDS ORDERED: VERAPAMIL 5 MG/2 ML VIAL ONE (15:43)
[2018-05-27] MEDS ORDERED: ACETAMINOPHEN 500 MG TAB ONE (16:13)
[2018-05-27] MEDS ORDERED: diphenhydrAMINE 25 MG CAP PO ONE (16:13)
[2018-05-27] MEDS ORDERED: FAMOTIDINE 20 MG TAB ONE (16:14)
[2018-05-27] MEDS ORDERED: ASPIRIN EC 325 MG TAB PO ONE (16:14)
[2018-05-27] MEDS: ACETAMINOPHEN 500 MG TAB PO PRN ×2 (16:18→21:07)
--- NOTE | 2018-05-27 16:22 | GCON ---
[f rep st] CONSULTATION CARDIOLOGY CONSULTATION DATE OF CONSULTATION: 05/27/2018 REFERRING PHYSICIAN: Nico Zhang MD REASON FOR CONSULTATION: Ventricular tachycardia. HISTORY OF PRESENT ILLNESS: The patient is a pleasant 67-year-old gentleman with a known history of throat cancer that is currently being treated by [facility], who recently was treat ed with chemotherapy including Taxotere, 5-FU, and comanche. He had previously been on imatinib with out appropriate response. He had presented to [facility] on May 24, 2018, for port removal. At the time of undergoing pump removal, he had to have an IV placed. When he saw the needle, he became lightheaded, diaphoretic, and near syncopal, at which time he was brought to the [facility] ER by ambulance. He also had been experiencing at the time significant inc rease in diarrhea since beginning his chemotherapeutic regimen. He had been taking loperamide, which was helpful, although, over the past few days, he has continued to have increased loose stools. In the emergency department, he was found to be hypokalemic with a potassium of 2.4. He was admitted to the hospital for IV hydration, and repletion of both magnesium and potassium. During the course of his hospitalization at approximately 4:45 a.m. on May 26, 2018, he went int o a run of ventricular tachycardia at approximately 140 beats per minute while sound asleep. He was unaware of this episode. Subsequently, he underwent a pacemaker interrogation, which demonstrated a run of ventricular tachyca rdia on April 09, 2018, as well as the episode from May 24. He denies any history of palpitati ons, dizziness, lightheadedness, or near syncope on April 09 or associated with the episode on the 04 13 while sleep. He has no known history of coronary artery disease. He denies complaints of exertional chest pain, c hest pressure, shortness of breath, or dyspnea on exertion. He has no complaints of PND, orthopnea, or lower extremity edema. He denies any new onset of exertional intolerance or fatigue. He is somew hat limited in his abilities in the setting of going through chemotherapy currently. Past medical history is notable for paroxysmal atrial fibrillation, diagnosed approximately 6 years a go. He is on outpatient anticoagulation strategy with Pradaxa 150 mg p.o. b.i.d. He is on no rate-c ontrolling medications. He also has a known history of sick sinus syndrome and underwent permanent pacemaker implantation in September 2012, a [employer] device. PAST MEDICAL HISTORY: Notable for stomach cancer, prostate cancer, hypertension, and arthritis. PAST SURGICAL HISTORY: Cancer resection in his stomach, as well as hernia repair. He had partial gastrectomy, as well as tonsillectomy. FAMILY HISTORY: Unremarkable for coronary disease. SOCIAL HISTORY: He is . He lives with his of the last 45 years. 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 He is lifelong nonsmoker. He does not drink sig nificant amounts of alcohol. PHYSICAL EXAMINATION: VITAL SIGNS: Blood pressure 126/76, heart rate 75, respiratory rate 20, oxyge n saturation 90% on room air, and temperature 38.8. GENERAL: He is awake, alert, oriented, and appr opriate. No apparent distress. NECK: There is no evidence of JVP or carotid bruits. LUNGS: Clear to auscultation anteriorly. CARDIAC: S1 and S2. Irregularly irregular consistent with atrial fibri llation. No murmurs, rubs, or gallops. CHEST WALL: He does have Steri-Strips on his right anterior chest at the site of port removal with no evidence of infection. ABDOMEN: Soft and nontender. EXT REMITIES: He has trace ankle edema bilaterally. DATA: White blood cell count 0.83, hemoglobin 14.9, hematocrit 44.5, and platelet count 88. Troponin was within normal range. Sodium 132, potassium 3.7, chloride 103, BUN 20, creatinine 1.2, and magnesium 1.8. Troponin 0.019. INR 1.54 from May 24, 2018. He has been on Pradaxa. He has not had any today. Echocardiogram demonstrates apical akinesis, lateral wall hypokinesis, and septal wall hypokinesis wi th a visually estimated EF of 40%. Left ventricular cavity is moderately dilated. No significant va lvular disease. Normal pulmonary pressures. Rest only nuclear images demonstrate severe loss of counts in the LV apex. There is evidence of infe rior and inferoseptal wall decreased uptake. This is a rest only study. IMPRESSION: 1. Ventricular tachycardia. 2. Reduced ejection fraction with a left ventricular ejection fraction of 40%. 3. Abnormal rest only nuclear imaging. 4. Evidence of inferior and lateral wall hypokinesis and apical akinesis. The patient is a pleasant 67-year-old gentleman with runs of ventricular tachycardia on April 09 and May 24, 2018, that were asymptomatic in the setting of reduced ejection fraction, apical akines is, lateral and inferior wall hypokinesis, as well as abnormal resting nuclear imaging with a reduced ejection fraction. I have recommended he undergo left heart catheterization. We will plan for radi al artery approach in the setting of recent anticoagulation with Pradaxa. Risks and benefits of the procedure have been discussed in detail with the patient, as well as his . All questions have be en addressed. PLAN: Plan for left heart catheterization to be performed this afternoon. /[id number]/MODL
--- NOTE | 2018-05-27 16:28 | ECHO ---
[email or web address] [address] [address] Main: [phone] Fax: Transthoracic Echocardiogram Name: DONG CRAIN MR#: [id number] Study Date: 05/27/2018 Study Time: 03:20 PM Date of : 1950 Age: 67 year(s) Height: 172.7 cm (68 in.) Weight: 81.65 kg (180 lb.) BSA: 1.95 m2 Gender: Male Examination: Limited Echo with Definity Indication: R/O LV apical thrombus Image Quality: Contrast: Requested by: Lorene Mills BP: / Heart Rate: Rhythm: Indication: R/O LV apical thrombus Procedure Staff Residential Therapist: Eda Sroto RDCS Reading Physician: Hayden Bejarano MD Requesting Provider: Conclusions: Definity contrast enhancement (0.165 mg) used to view the LV apical region accurately. No LV thrombus visualized.. Measurements: Chambers Valvular Assessment AV/MV Valvular Assessment TV/PV Normal Normal Normal Name Value Range Name Value Range Name Value Range Continued Measurements: Findings: Left Ventricle: Definity contrast enhancement (0.165 mg) used to view the LV apical region accurately. No LV thrombus visualized.. (No Signature Object) Patient: DONG CRAIN Study Date: 05/27/2018 Page 1 of 1 03:20 PM [id number]
--- NOTE | 2018-05-27 16:49 | PDDXCAT ---
Diagnostic Cath Note - . Date: 05/27/18 Log Chain Worker: Salena Indication: CCC Class III and IV angina on medical treatment - Procedure Access: right wrist Procedure: left heart catheterization, coronary angiography, left ventriculogram - Materials Left Heart Cath size: 5F Left Heart Cath materials: JL3.5, JR4.0, pigtail - Findings-Left Heart Catheterization LM: The left main is 8mm in size. The vessel trifurcates into a LAD, circumflex and Ramus system. LAD: The left anterior descending is 4.5mm in size. The vessel gives rise to a diagonal system without evidence of disease. LCX: The left circumflex is 5mm in size and dominant. The vessel gives rise to two important obtuse marginal branches. There is stenosis in the distal segment of the vessel. Maximal luminal stenosis is 30% with LAURA III flow throughout. RCA: The right coronary artery is 3mm in size and non-dominant. There is a 40% lesion in the proximal segment. There is LAURA III flow to the distal vessel. EDP: 12mmHg Wall motion: On the LV gram there is moderately decreased LV systolic function. The EF is 40%. There is basal inferior wall moderate hypokinesis in addition to global hypokinesis . The visualized portion of the thoracic aortic valve reveals three sinuses of valsalva most consistent with a trileaflet valve. There is +1 mitral regurgitation. There is no gradient on pullback across the aortic valve. There is no evidence of eliane dissection or aneurysm formation of the thoracic aorta. - Findings-Right Heart Catheterization AO: 116/67/88 Complications: NONE Estimated blood loss: <50ml Closure method: TR Band Assessment: The patient has [place] vessel coronary disase. The patient's left circumflex is dominant. There is 30% stenosis in the distal segment. The right coronary system is non-dominant witha 40% lesion in the proximal segment with LAURA III flow throughout. The LAD gives rise to a diagonal system without evidence of disease. There is reduced ejection fraction measuring. The patient has 1+ mitral regurgitation. Plan: The patient has non flow-limiting disease and should continue to medically managed with statin therapy to reduce plaque formation. The patient also has a history of atrial fibrillation and would benefit from continuation of anticoagulation therapy with Pradaxa. The patient may benefit from a BiV AICD due to his decreased ejection fraction measuring 40% and sustained monomorphic VT. He currently has a neutropenic fever so any change to the device will have to wait until that issue is sorted out. Intervention: NONE Patient Problems: Problems Problem Status Onset Syncope Acute Hypokalemia Acute
[2018-05-27] MEDS ORDERED: ATROPINE SULFATE 1 MG/10 ML SYR IVP PRN (17:52)
[2018-05-27] MEDS: METOPROLOL TARTRATE 25 MG TAB PO SCH ×2 (18:41→21:10)
[2018-05-27] MEDS: CEFEPIME HCL 2 GM in NS 100 ML IV SCH (18:42)
[2018-05-27] MEDS: VANCOMYCIN 1.25 GM in NS 250 ML IV SCH (21:00)
[2018-05-27] MEDS: CYCLOBENZAPRINE 10 MG TAB PO SCH (21:10)
[2018-05-27] MEDS: CETIRIZINE 10 MG TAB PO PRN (21:10)
[2018-05-27] MEDS: LORazepam 0.5 MG TAB PO PRN (21:11)
[2018-05-27] MEDS: LOPERAMIDE HCL 2 MG CAP PO PRN (21:11)
--- NOTE | 2018-05-27 21:24 | SOAPPROG ---
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 Problem #1 vasovagal syncope Patient has a known phobia regarding needles and subsequently became cool and clammy diaphoretic after removal of the needle from his port. This may have been exacerbated by hypovolemia in the setting of decreased p.o. intake, large volume stool output, and electrolyte abnormalities. Problem #2 electrolyte abnormalities Patient was admitted with severe hypokalemia, hypomagnesemia and hypocalcemia. 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 -continue aggressive oral potassium replacement (can't tolerate IV), would likely avoid oral mag given diarrhea -would try immodium as needed for diarrhea Problem #3 Thrush -continue nystatin Problem #4 bicytopenia secondary to chemotherapy We will continue to follow along with the patient. Subjective: patient reports feeling better, he had maybe 4 BMs in last 24 hours and felt that they were mostly gas. Has some appetite and improved PO intake today. no new symptoms, apparently had VT last few days. Objective: Vital Signs Temp Pulse Resp BP Pulse Ox 39.1 C H 75 19 128/87 H 92 05/27/18 18:36 05/27/18 18:36 05/27/18 18:36 05/27/18 18:36 05/27/18 18:36 Laboratory Results 05/27/18 03:36 05/27/18 20:56 05/26/18 05/27/18 05/28/18 05:59 05:59 05:59 Intake Total 925 1350 500 Output Total 925 595 Balance 0 755 500 PT 18.6 SEC (12.0-15.0) H 05/24/18 14:00 INR 1.54 (0.83-1.16) H 05/24/18 14:00 Physical examination: Vital signs reviewed General: No acute distress nontoxic appearing male HEENT: Pupils are equal round and reactive to light no scleral icterus or conjunctival pallor, oral erythema and whitish plaques on hard palate and buccal mucosa Cardiovascular: Regular rate and rhythm without rubs thrills gallops or murmurs Chest: Clear to auscultation percussion bilateral posterior lungs Abdomen: Soft nontender nondistended without any hepatosplenomegaly Lymph: 2.5 centimeter left posterior cervical hard fixed lymph node was palpated Neurologic: Alert and oriented cranial nerves II through XII are intact ICD10 Worksheet Patient Problems: Problems Problem Status Onset Hypokalemia Acute Syncope Acute
[2018-05-27] MEDS ORDERED: POTASSIUM CL 10 MEQ TAB PO ONE (21:28)
[2018-05-28] MEDS: CEFEPIME HCL 2 GM in NS 100 ML IV SCH ×5 (00:12→21:03)
[2018-05-28] MEDS ORDERED: POTASSIUM CL 10 MEQ TAB PO ONE ×3 (01:45→20:13)
[2018-05-28] MEDS: VANCOMYCIN 1.25 GM in NS 250 ML IV SCH ×2 (05:56→18:32)
[2018-05-28] MEDS: NYSTATIN SUSP 500000 UNIT/5 ML UD LIQ PO SCH ×4 (05:57→21:16)
[2018-05-28] MEDS: MBX SOLN 30 ML BOTTLE PO PRN ×2 (08:49→21:15)
[2018-05-28] MEDS: NS 1,000 ML IV SCH (08:49)
[2018-05-28] MEDS ORDERED: CALCIUM GLUCONATE 50 ML IV ONE (08:53)
[2018-05-28 09:03] LABS: PLATELET COUNT 60 10^3/uL (150-400)
[2018-05-28] MEDS: ACETAMINOPHEN 500 MG TAB PO PRN ×2 (09:26→16:11)
[2018-05-28] MEDS: LISINOPRIL 10 MG TAB PO SCH (10:13)
[2018-05-28] MEDS: METOPROLOL TARTRATE 25 MG TAB PO SCH ×2 (10:14→21:08)
[2018-05-28] MEDS: DABIGATRAN ETEXILATE MESYL 150 MG CAP PO SCH ×2 (10:14→21:07)
--- NOTE | 2018-05-28 10:36 | PDCARPN ---
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 If normal will start amiodarone in the setting of VT -For now, continue metoprolol 25 mg bid -Restart Pradaxa 150 mg bid -will follow 05/28/18 10:44 Subjective: undewent [facility] yesterday. No flow limiting CAD. LVEF 40% with most likely eitiology due to hx of alcohol abuse (confirms to me today 5-6 beers several nights a week) as well as possible chemotherapeutic therapy impacting LV function. Mr. Kinney is not a candidate for BiV ICD at this time secondary to Neutropenia and fever. I defer to my medicine and oncology collegues to address neutropneia and fever. Options to address Ventricular Tachycardia were discussed in detail with Mr. Kinney. Options include continuing beta janel therapy vs. Amiodarone. We also discussed the importance of eliminating alcohol. Objective: Vital Signs (8 Hrs) Temp Pulse Resp BP Pulse Ox 05/28/18 09:25 37.7 C 70 13 126/73 H 91 L 05/28/18 04:00 37.6 C 83 16 125/78 H 96 Intake/Output (24 Hrs) 05/27/18 05/28/18 05/29/18 05:59 05:59 05:59 Intake Total 1350 3300 207 Output Total 595 Balance 755 3300 207 Intake: Oral (ml) 1350 500 IV Intake (ml) 300 IV Infused (ml) 2500 207 Cefepime HCl 2 gm In Ns 100 107 100 ml @ 200 mls/hr IV Q8HRS BUFFY Rx#:[id number] Ns 1,000 ml @ 100 mls/hr 1900 100 IV CONT BUFFY Rx#: [id number] Vancomycin 1.25 gm In Ns 500 250 ml @ 166.667 mls/hr IV Q12H BUFFY Rx#: [id number] Output: Urine (ml) 595 Toilet 595 Other: Intake Quantity Yes Sufficient Output Comment Urinal Reports 8 diarrhea BMs since here. Only 2 charted. Number of Voids Toilet 1 1 Number of Stools Toilet 5 1 Result Diagrams: 05/28/18 08:30 05/28/18 08:30 Cardiac Labs: Cardiac Lab Results (72 Hrs) 05/27/18 05/27/18 14:52 09:50 Troponin I 0.019 REJ - Physical Exam Constitutional: no apparent distress Cardiovascular: regular rate and rhythm, no murmurs, no rubs, other (right radial artery site is without hematoma or echymosis. ) Neurologic: AAOx3, CN II-XII grossly intact Psychiatric: cooperative, interactive ICD10 Worksheet Patient Problems: Problems Problem Status Onset Hypokalemia Acute Syncope Acute
[2018-05-28] MEDS: FLUTICASONE NASAL 120 SPRAYS/16 GM MDI EACHNARE SCH (12:09)
[2018-05-28] MEDS: MAGNESIUM OXIDE 400 MG TAB PO SCH (12:57)
[2018-05-28] MEDS: FLUCONAZOLE 40 MG/ML UDSYR PO SCH (13:25)
--- NOTE | 2018-05-28 14:01 | ASMTCMCOM ---
CM Note CM Note Notes: Pts case discussed in tx rounds. Pt is not medically stable to d/c at this time. Pt currently on two ivabx. Therapies have cleared pt to d/c home without any needs. CM available for changes. Plan: Independent Date Signed: 05/28/2018 02:00 PM Electronically Signed By:VINI Roe
[2018-05-28] MEDS: LOPERAMIDE HCL 2 MG CAP PO PRN ×2 (16:00→18:10)
[2018-05-28] MEDS: DIPHENOXYLATE/ATROPINE LOMOTIL 1 TAB PO SCH ×2 (16:01→21:09)
--- NOTE | 2018-05-28 16:12 | HOSPPROG ---
Hospitalist Progress Note Assessment/Plan: 67 yo M with PMH of HPV positive head and neck tumor currently undergoing chemotherapy with taxotere, 5 FU and cisplatin with recent diarrhea related to 5FU presenting with syncope found to have severe hypokalemia. Hospital course complicated by VT and now neutropenic fevers. NICM- LHC yesterday with LVEF of 40%. Etiology likely 2.2 to alcohol use and possibly related to chemo. No BIVAICD per cardiology in setting of neutropenia. -cont lopressor -address neutropenic fever which may open more options to address NICM and V tach. Ventricular tachycardia: Device interrogated, VT going back to April 09. Coronary angio with no CAD as etiology. No BIVAICD in setting of neutropenic fevers. -check TSH, and LFT and if normal plan on starting amiodarone - Continue lopressor 25 bid - Cardiology Following - Aggressive electrolyte repletion, goal K>4 and Mg>2 Neutropenic fever: Port site is concerning for source. Alternatively, could be related to mucositis vs gut translocation with recent diarrhea. - Blood cultures - Cont IV vancomycin, cefepime 2g q8h - Oncology aware -ID consulted today, will see in am. 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 Follows with Dr. Pineda. Oncology consulted on this admission. Synopal episodes: History c/w vagal events but above concerning for arrhythmia. No events on telemetry overnight. continue to monitor. Severe hypokalemia: Both GI and renal losses (urine K very high). The latter is likely a phenomena of his cisplatin therapy (fanconi-like syndrome). - Repleting as above Diarrhea: Persistent. C diff negative. Likely chemo side effect - Loperamide PRN -lomotil added today CHAPO: Improved with fluids. Monitor. Contact dermatitis: Involving right chest. Removed tape. Thrombocytopenia: Related to chemo, stable. Afib: Rates controlled. On OAC. S/p ablation and pacemaker placement in 2012. Sees outside template worker. cont pradaxa 150 bid HTN: Holding lisinopril. Etoh use: Was weaning himself off as outpt. 5-6 drinks/night previously. Not in withdrawal. Headache: Trial flexeril with sleep. Likely d/t dehydration and stress. Subjective: no complaints. Objective: Vital Signs Temp Pulse Resp BP Pulse Ox 37.2 C 70 19 110/67 93 05/28/18 14:23 05/28/18 12:00 05/28/18 12:00 05/28/18 12:00 05/28/18 12:00 Laboratory Results 05/28/18 08:30 05/28/18 08:30 05/27/18 05/28/18 05/29/18 05:59 05:59 05:59 Intake Total 1350 3300 207 Output Total 595 Balance 755 3300 207 PT REJ 05/28/18 11:20 INR REJ 05/28/18 11:20 - Physical Exam Constitutional: no apparent distress, appears nourished, not in pain Eyes: PERRL, anicteric sclera, EOMI Ears, Nose, Mouth, Throat: moist mucous membranes, hearing normal, ears appear normal, no oral mucosal ulcers Cardiovascular: regular rate and rhythym, no murmur, rub, or gallop Respiratory: no respiratory distress, no rales or rhonchi, clear to auscultation Gastrointestinal: normoactive bowel sounds, soft, non-tender abdomen, no palpable masses Genitourinary: no bladder fullness, no bladder tenderness, no renal bruits Skin: no rashes or abrasions, no fluctuance, no induration Musculoskeletal: full muscle strength, no muscle tenderness, normal joint ROM Neurologic: AAOx3, sensation intact bilaterally Psychiatric: interacting appropriately, not anxious, not encephalopathic, thought process linear Lymph, Heme, Immunologic: no cervical LAD, no supraclavicular LAD ICD10 Worksheet Patient Problems: Problems Problem Status Onset Hypokalemia Acute Syncope Acute
[2018-05-28] MEDS: FILGRASTIM-SNDZ 480 MCG/0.8 ML SYR SC SCH (16:49)
[2018-05-28 18:49] LABS: INR 1.5 (0.83-1.16); PROTIME(PATIENT) 18.3 SEC (12.0-15.0)
[2018-05-28] MEDS: CYCLOBENZAPRINE 10 MG TAB PO SCH (21:09)
[2018-05-28] MEDS: CETIRIZINE 10 MG TAB PO PRN (21:19)
[2018-05-29] MEDS: VANCOMYCIN 1.25 GM in NS 250 ML IV SCH (05:05)
[2018-05-29] MEDS: CEFEPIME HCL 2 GM in NS 100 ML IV SCH ×3 (05:05→21:42)
[2018-05-29] MEDS: DIPHENOXYLATE/ATROPINE LOMOTIL 1 TAB PO SCH ×5 (05:17→21:41)
[2018-05-29] MEDS: NYSTATIN SUSP 500000 UNIT/5 ML UD LIQ PO SCH ×4 (05:19→20:26)
[2018-05-29 05:44] LABS: PLATELET COUNT 61 10^3/uL (150-400)
[2018-05-29] MEDS ORDERED: POTASSIUM CL 10 MEQ TAB PO ONE ×2 (07:59→19:52)
[2018-05-29] MEDS ORDERED: MAGNESIUM SULF 1 GM/DEXTROSE 100 ML IV ONE (08:38)
[2018-05-29] MEDS ORDERED: CALCIUM GLUCONATE 50 ML IV ONE (08:38)
[2018-05-29] MEDS: FLUCONAZOLE 40 MG/ML UDSYR PO SCH (09:26)
[2018-05-29] MEDS: DABIGATRAN ETEXILATE MESYL 150 MG CAP PO SCH ×2 (09:26→20:13)
[2018-05-29] MEDS: MAGNESIUM OXIDE 400 MG TAB PO SCH (09:27)
[2018-05-29] MEDS: LISINOPRIL 10 MG TAB PO SCH (09:27)
[2018-05-29] MEDS: METOPROLOL TARTRATE 25 MG TAB PO SCH ×2 (09:27→20:21)
[2018-05-29] MEDS: FLUTICASONE NASAL 120 SPRAYS/16 GM MDI EACHNARE SCH (09:28)
--- NOTE | 2018-05-29 10:14 | SOAPPROG ---
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 Problem #1 vasovagal syncope Patient has a known phobia regarding needles and subsequently became cool and clammy diaphoretic after removal of the needle from his port. This may have been exacerbated by hypovolemia in the setting of decreased p.o. intake, large volume stool output, and electrolyte abnormalities. Problem #2 electrolyte abnormalities Patient was admitted with severe hypokalemia, hypomagnesemia and hypocalcemia. 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 -continue aggressive electrolyte replacement, would likely avoid oral mag given diarrhea -would try immodium as needed for diarrhea Problem #3 Thrush -change to fluconazole for 7 days Problem #4 bicytopenia secondary to chemotherapy Severe neutropenia -continue G-CSF (started today ) Problem #5 apthous stomatitis, likely HSV related - start acyclovir as likely HSV related Problem #6 Neutropenic fever (05/27) No source identified, currently on cefepime, afebrile, day #9 after TCF (05/19) -continue cefepime/vancomycin given mucositis We will continue to follow along with the patient. Subjective: patient frustrated by still being admitted, had LHC which showed non obstructive CAD as source of VT. Mucositis still present Objective: Vital Signs Temp Pulse Resp BP Pulse Ox 37.0 C 71 17 134/79 H 98 05/29/18 04:00 05/29/18 04:00 05/29/18 04:00 05/29/18 09:27 05/29/18 04:00 Laboratory Results 05/29/18 05:15 05/29/18 05:15 05/28/18 05/29/18 05/30/18 05:59 05:59 05:59 Intake Total 3300 3277 Output Total 325 Balance 3300 2952 PT 18.3 SEC (12.0-15.0) H 05/28/18 17:20 INR 1.50 (0.83-1.16) H 05/28/18 17:20 Physical examination: Vital signs reviewed General: No acute distress nontoxic appearing male HEENT: Pupils are equal round and reactive to light no scleral icterus or conjunctival pallor, oral erythema and whitish plaques on hard palate and buccal mucosa Cardiovascular: Regular rate and rhythm without rubs thrills gallops or murmurs Chest: Clear to auscultation percussion bilateral posterior lungs Abdomen: Soft nontender nondistended without any hepatosplenomegaly Lymph: 2.5 centimeter left posterior cervical LN, softer than admission Neurologic: Alert and oriented cranial nerves II through XII are intact ICD10 Worksheet Patient Problems: Problems Problem Status Onset Hypokalemia Acute Syncope Acute
[2018-05-29] MEDS: D5W IV SCH ×2 (10:33→22:11)
[2018-05-29] MEDS: ACYCLOVIR IV SCH ×2 (10:33→22:11)
--- NOTE | 2018-05-29 10:35 | SOAPPROG ---
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 This may have been exacerbated by hypovolemia in the setting of decreased p.o. intake, large volume stool output, and electrolyte abnormalities. Problem #2 electrolyte abnormalities Patient was admitted with severe hypokalemia, hypomagnesemia and hypocalcemia. 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 - continue acyclovir 5x/day as likely HSV related Problem #6 Neutropenic fever (05/27), afebrile since, no new symptoms but mucositis No source identified, currently on cefepime, afebrile, day #10 after TCF (05/19) -continue cefepime/vancomycin given mucositis Problem #7 Sustained VT Non obstructive CAD, seen by cardiology, started on beta janel, plan is possible amiodarone and bi-V pacemaker/ICD based on LVEF 40% when no longer neutropenic Problem #8 Squamous cell carcinoma of BOT(p16 positive), left subpectorial LN on PET/CT so did induction chemotherapy -TCF 05/19, did not receive neulasta due to syncope We will continue to follow along with the patient. Subjective: patient continues to be frustrated by being admitted, he had maybe 4 BMs overnight of small content, no fevers chills or sweats, still with difficulty with PO, no new symptoms. Objective: Vital Signs Temp Pulse Resp BP Pulse Ox 37.0 C 71 17 134/79 H 98 05/29/18 04:00 05/29/18 04:00 05/29/18 04:00 05/29/18 09:27 05/29/18 04:00 Laboratory Results 05/29/18 05:15 05/29/18 05:15 05/28/18 05/29/18 05/30/18 05:59 05:59 05:59 Intake Total 3300 3277 Output Total 325 Balance 3300 2952 PT 18.3 SEC (12.0-15.0) H 05/28/18 17:20 INR 1.50 (0.83-1.16) H 05/28/18 17:20 Physical examination: Vital signs reviewed General: No acute distress nontoxic appearing male HEENT: Pupils are equal round and reactive to light no scleral icterus or conjunctival pallor, oral erythema and whitish plaques on hard palate and buccal mucosa Cardiovascular: Regular rate and rhythm without rubs thrills gallops or murmurs Chest: Clear to auscultation percussion bilateral posterior lungs Abdomen: Soft nontender nondistended without any hepatosplenomegaly Lymph: 2.5 centimeter left posterior cervical lymph node was palpated Neurologic: Alert and oriented cranial nerves II through XII are intact ICD10 Worksheet Patient Problems: Problems Problem Status Onset Hypokalemia Acute Syncope Acute
[2018-05-29] MEDS ORDERED: K PHOS 10 MMOL in D5W 250 ML IV ONE (12:00)
--- NOTE | 2018-05-29 12:48 | PDCONSULT ---
Physical Security Engineer Note: Infectious Diseases Consult Note Impression: 67-year-old man with cancer chemotherapy-induced neutropenia with fevers. Microbiology negative to date with ongoing oral mucositis and diarrhea suggesting colonic mucositis as the likely underlying cause of his fevers. With no recovery of a gram-positive organism can stop vancomycin today. Will add IV acyclovir at prophylactic dosing during his period of cytopenias and risk for reactivation of HSV complicating severe oral mucositis. Fever intensity has decreased will continue therapy with cefepime alone. 1. Febrile neutropenia, improved; no microbiologic diagnosis, likely related to severe mucositis 2. Cancer chemotherapy-induced pancytopenia 3. Syncopal events 4. Active HPV positive head neck cancer, receiving chemotherapy with docetaxel, cisplatin, fluorouracil 5. History of GIST tumor, with partial gastrectomy; oral absorption may limit the use of oral antibiotics during active infection or severe infection Plan: 1. Stop vancomycin 2. Continue cefepime 2 g q.8 3. Start acyclovir 5 milligrams/kilogram IV twice daily 4. Continue oral fluconazole Lemuel Dennis MD Infectious Diseases Chief Complaint: Admitted with syncope, ongoing febrile neutropenia Requesting Provider: Dr. Driscoll Reason for Referral: Consultation was requested by Dr. Driscoll regarding antimicrobial management. HPI: 67-year-old man was admitted to the hospital for syncopal event. With subsequent to this event he was found to have the development of fevers while neutropenic from chemotherapy. Started his 1st cycle in the last few weeks for recently diagnosed head neck cancer was HPV positive. His chemotherapy regimen includes docetaxel, cisplatin, fluorouracil. He was at an outpatient appointment to have his fluorouricil pump removed from his port when he developed a syncopal episode. At the outset of his admission he also developed neutropenia from his recent chemotherapy and then became febrile. Blood cultures have been negative, with the initial concern of the infection of the port. He was initially started on cefepime and vancomycin due to the concern for port infection. Patient notes that he began having diarrhea at home approximately 2 days before admission and that he felt some fevers that were not measured at home 1-2 days prior to admission. Since admission he has developed worsening oral mucositis with severe oral pain limiting his ability to take in food. He notes ongoing severe diarrhea without rectal pain. He notes no rash, myalgias, arthralgias, sick contacts at home, or pain around his port. Overall since admission he does feel that his fever intensity is decreased. He notes no focal complaints today including no abdominal pain. Reviewed patient medical records in [facility], and [facility] ([facility] Past Medical History: Locally advanced HPV positive head and neck cancer; gastrointestinal stromal tumor diagnosed 01/26/2013 treated with Levophed Past Surgical History: Right thorax port placement; pacemaker placement; partial gastrectomy Social History: Does not use tobacco products; Does not consume marijuana products current by; no active alcohol use; Does not use any other drugs currently or in the past Family History: No family members with recurrent infections Allergies: Penicillins Medications: Reviewed in medical record and confirmed with patient. ROS: 10 organ systems reviewed; pertinent positives and negatives listed in the HPI, all other organ systems negative. Physical Exam: VS: Reviewed Gen: No acute distress; Breathing comfortably with supplemental oxygen; Able to speak in complete sentences Eyes: No conjunctival injection; No scleral icterus HENT: No gross deformities; Severe oral mucositis not involving external orolabia Neck: No limitation in range of motion Pulm: Breath sounds clear to the bases bilaterally; No wheeze, rhonchi, or rales CV: Normal S1 and S2; Regular rate and rhythm; No murmurs, rubs, or gallops; No lower extremity edema Abd: Not distended; Normo-active bowel sounds; Soft; Non-tender Skin: A full skin exam including exposed bilateral upper extremities, bilateral lower extremities to the knees, face, neck, abdomen, chest, and back performed; Skin intact, warm, with no rash MSK: Joints without erythema or edema; No gross limitation in range of motion Ext: No clubbing or cyanosis Neuro: Awake and alert Psych: Normal mood and blunted affect Labs/Imaging: All microbiology testing (culture and non-culture) reviewed in the medical record. Personally reviewed and interpreted the images of the following radiographs: chest x-ray from admission showing clear lung holliday, right-sided port in place , pacemaker in place. Medications Generic Name Dose Route Start Last Admin Trade Name Freq PRN Reason Stop Dose Admin Acyclovir 410 mg/ Dextrose 108.2 mls @ 100.031 mls/hr 05/29/18 10:12 10:33 IV 06/28/18 10:11 108.2 mls BID BUFYF Cefepime HCl 2 gm/ Sodium 100 mls @ 200 mls/hr 05/27/18 16:30 05/29/18 05:05 Chloride IV 06/26/18 16:29 100 mls Q8HRS [facility] Protocol Fluconazole 100 mg 05/28/18 12:00 05/29/18 09:26 Fluconazole Oral Liquid PO 06/27/18 11:59 100 mg DAILY [facility] Discontinued Medications Generic Name Dose Route Start Last Admin Trade Name Mando PRN Reason Stop Dose Admin Vancomycin HCl 1.25 gm/ Sodium 250 mls @ 166.667 mls/hr 05/27/18 18:00 05:05 Chloride IV 06/26/18 17:59 250 mls Q12H [facility] Microbiology 05/27/18 17:45 Blood Blood Culture - Preliminary 05/27/18 16:51 Blood Blood Culture - Preliminary Laboratory Tests 05/25/18 05/26/18 05/27/18 08:05 15:30 03:36 WBC 2.58 L 0.83 L* Hgb 14.6 14.9 Plt Count 88 L Creatinine Total Protein Albumin C. difficile Tox (PCR) NEGATIVE 05/28/18 05/28/18 05/28/18 08:30 08:30 11:20 WBC 0.50 L* Hgb 13.2 L Plt Count 60 L Creatinine 1.2 Total Protein 5.2 L Albumin 2.7 L C. difficile Tox (PCR) 05/29/18 05/29/18 05:15 05:15 WBC 0.73 L* Hgb 12.6 L Plt Count 61 L Creatinine 1.0 Total Protein 4.8 L Albumin 2.5 L C. difficile Tox (PCR) Ongoing monitoring for antimicrobial toxicity with: CBC, BMP.
--- NOTE | 2018-05-29 12:54 | PDCARPN ---
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 Kinney has not had any more runs of VT on telemetry. No new cardiac issues. Vitals stable. Reviewed/Discussed With: hospitalist Objective: Vital Signs (8 Hrs) Temp Pulse Resp BP Pulse Ox 05/29/18 11:22 37.9 C 70 19 113/73 90 L 05/29/18 09:27 134/79 H 05/29/18 08:00 37.9 C 70 16 134/79 H 91 L Intake/Output (24 Hrs) 05/28/18 05/29/18 05/30/18 05:59 05:59 05:59 Intake Total 3300 3277 Output Total 325 Balance 3300 2952 Intake: Oral (ml) 500 1050 IV Intake (ml) 300 IV Infused (ml) 2500 2227 Calcium Gluconate 50 ml @ 55 100 mls/hr IV ONCE ONE Rx#:[id number] Cefepime HCl 2 gm In Ns 100 517 100 ml @ 200 mls/hr IV Q8HRS [facility] Rx#:[id number] Ns 1,000 ml @ 100 mls/hr 1900 1135 IV CONT [facility] Rx#: [id number] Vancomycin 1.25 gm In Ns 500 520 250 ml @ 166.667 mls/hr IV Q12H [facility] Rx#: [id number] Output: Urine (ml) 325 Urinal 325 Other: Number of Voids Toilet 1 6 Number of Stools Toilet 1 Urinal 2 Result Diagrams: 05/29/18 05:15 05/29/18 05:15 Cardiac Labs: Cardiac Lab Results (72 Hrs) 05/27/18 05/27/18 14:52 09:50 Troponin I 0.019 REJ - Physical Exam Cardiovascular: regular rate and rhythm, no murmurs, no rubs, no gallops Respiratory: clear to auscultate bilat Neurologic: AAOx3, CN II-XII grossly intact Psychiatric: cooperative, interactive, following commands ICD10 Worksheet Patient Problems: Problems Problem Status Onset Hypokalemia Acute Syncope Acute
--- NOTE | 2018-05-29 14:02 | HOSPPROG ---
Hospitalist Progress Note Assessment/Plan: 67 yo M with PMH of HPV positive head and neck tumor currently undergoing chemotherapy with taxotere, 5 FU and cisplatin with recent diarrhea related to 5FU presenting with syncope found to have severe hypokalemia. Hospital course complicated by VT and now neutropenic fevers. NICM- LHC yesterday with LVEF of 40%. Etiology likely 2.2 to alcohol use and possibly related to chemo. No BIVAICD per cardiology in setting of neutropenia. -cont lopressor -address neutropenic fever Ventricular tachycardia: Device interrogated, VT going back to April 09. Coronary angio with no CAD as etiology. No BIVAICD in setting of neutropenic fevers. -start amio 400 daily -start pradaxa 150 bid - Continue lopressor 25 bid - Cardiology Following - Aggressive electrolyte repletion, goal K>4 and Mg>2 Neutropenic fever:. likely related to mucositis from recent chemotherapy with taxol. - Blood cultures NGTD -neupogen started yesterday. cont -stop vanco, continue cefepime 2g Q8 -cont diflucan 100mg -add acyclovir 5mg/kg BID - Oncology aware -ID consulted, appreciate the help HPV positive SCC of the tongue on induction therapy with TPF chemo. Follows with Dr. Pineda. Oncology consulted on this admission. Synopal episodes: History c/w vagal events but above concerning for arrhythmia. No events on telemetry overnight. continue to monitor. Severe hypokalemia: Both GI and renal losses (urine K very high). The latter is likely a phenomena of his cisplatin therapy (fanconi-like syndrome). - Repleting as above Diarrhea: Persistent. C diff negative. Likely chemo side effect - Loperamide PRN -lomotil CHAPO: Improved with fluids. Monitor. Contact dermatitis: Involving right chest. Removed tape. Thrombocytopenia: Related to chemo, stable. Afib: Rates controlled. On OAC. S/p ablation and pacemaker placement in 2012. 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 cont pradaxa 150 bid HTN: Holding lisinopril. Etoh use: Was weaning himself off as outpt. 5-6 drinks/night previously. Not in withdrawal. Headache: Trial flexeril with sleep. Likely d/t dehydration and stress. Subjective: no pain, diarrhea somewhat improved. Objective: Vital Signs Temp Pulse Resp BP Pulse Ox 37.9 C 70 19 113/73 90 L 05/29/18 11:22 05/29/18 11:22 05/29/18 11:22 05/29/18 11:22 05/29/18 11:22 Laboratory Results 05/29/18 05:15 05/29/18 05:15 05/28/18 05/29/18 05/30/18 05:59 05:59 05:59 Intake Total 3300 3277 Output Total 325 Balance 3300 2952 PT 18.3 SEC (12.0-15.0) H 05/28/18 17:20 INR 1.50 (0.83-1.16) H 05/28/18 17:20 - Physical Exam Constitutional: no apparent distress, appears nourished, not in pain Eyes: PERRL, anicteric sclera, EOMI Ears, Nose, Mouth, Throat: moist mucous membranes, hearing normal, ears appear normal, no oral mucosal ulcers Cardiovascular: regular rate and rhythym, no murmur, rub, or gallop Respiratory: no respiratory distress, no rales or rhonchi, clear to auscultation Gastrointestinal: normoactive bowel sounds, soft, non-tender abdomen, no palpable masses Genitourinary: no bladder fullness, no bladder tenderness, no renal bruits Skin: no rashes or abrasions, no fluctuance, no induration Musculoskeletal: full muscle strength, no muscle tenderness, normal joint ROM Neurologic: AAOx3, sensation intact bilaterally Psychiatric: interacting appropriately, not anxious, not encephalopathic, thought process linear Lymph, Heme, Immunologic: no cervical LAD, no supraclavicular LAD ICD10 Worksheet Patient Problems: Problems Problem Status Onset Hypokalemia Acute Syncope Acute
[2018-05-29] MEDS: FILGRASTIM-SNDZ 480 MCG/0.8 ML SYR SC SCH (14:23)
[2018-05-29] MEDS: LOPERAMIDE HCL 2 MG CAP PO PRN (16:27)
[2018-05-29] MEDS: NS 1,000 ML IV SCH (17:40)
[2018-05-29] MEDS: CYCLOBENZAPRINE 10 MG TAB PO SCH (20:13)
[2018-05-29] MEDS: AMIODARONE HCL 200 MG TAB PO SCH (20:13)
[2018-05-29] MEDS: CETIRIZINE 10 MG TAB PO PRN (20:30)
[2018-05-30] MEDS: DIPHENOXYLATE/ATROPINE LOMOTIL 1 TAB PO SCH ×4 (05:51→21:49)
[2018-05-30] MEDS: NS 1,000 ML IV SCH (05:52)
[2018-05-30] MEDS: CEFEPIME HCL 2 GM in NS 100 ML IV SCH ×3 (05:52→21:46)
[2018-05-30] MEDS: NYSTATIN SUSP 500000 UNIT/5 ML UD LIQ PO SCH ×4 (05:52→21:46)
[2018-05-30 06:26] LABS: PLATELET COUNT 63 10^3/uL (150-400)
[2018-05-30] MEDS ORDERED: POTASSIUM CL 10 MEQ TAB PO ONE ×2 (08:08→21:33)
[2018-05-30] MEDS ORDERED: MAGNESIUM SULF 1 GM/DEXTROSE 100 ML IV ONE (08:09)
[2018-05-30] MEDS ORDERED: CALCIUM GLUCONATE 50 ML IV ONE (08:09)
--- NOTE | 2018-05-30 09:07 | SOAPPROG ---
ANGELA Progress Note Assessment/Plan: Assessment: 67 y/o man with SSS s/p PPM, mild CHF with LVEF 40%, mild to moderate CAD by cath this week and PAF and VT on telemetry being loaded with PO Amiodarone. No signs of cardiac arrhythmias last 24hrs or angina or volume overload. PLAN: 1)start Aldactone 25mg PO qam. 2)KCL 20meq PO TID 3)rest of cardiac meds without changes. 4)labs at 4pm: K+ 5)ECG in AM (05/31) to follow QTc. 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 Garrido upon discharge. 05/30/18 09:04 Subjective: lots of watery diarrhea. Denies CP, palpitations, near syncope or PND. Has mild , non-productive cough. Objective: Vital Signs Temp Pulse Resp BP Pulse Ox 36.9 C 71 18 137/77 H 98 05/30/18 08:00 05/30/18 08:00 05/30/18 08:00 05/30/18 08:00 05/30/18 08:00 Laboratory Results 05/30/18 05:55 05/30/18 05:55 05/29/18 05/30/18 05/31/18 05:59 05:59 05:59 Intake Total 3277 3408 Output Total 325 Balance 2952 3408 PT 18.3 SEC (12.0-15.0) H 05/28/18 17:20 INR 1.50 (0.83-1.16) H 05/28/18 17:20 Physical Exam - Physical Exam General Appearance: alert EENT: PERRL/EOMI Neck: non-tender Respiratory: lungs clear Cardiac/Chest: regular rate, rhythm, systolic murmur (1/6 CHING heard), No gallop , No JVD Peripheral Pulses: 2+: carotid (R), carotid (L), femoral (R), femoral (L), dorsalis-pedis (R), dorsalis-pedis (L) Abdomen: non-tender, No guarding, No rebound, No ascites Skin: warm/dry Extremities: No pedal edema Neuro/Psych: alert ICD10 Worksheet Patient Problems: Problems Problem Status Onset Hypokalemia Acute Syncope Acute
[2018-05-30] MEDS: MBX SOLN 30 ML BOTTLE PO PRN (09:31)
[2018-05-30] MEDS: DABIGATRAN ETEXILATE MESYL 150 MG CAP PO SCH ×2 (09:34→21:49)
[2018-05-30] MEDS: LISINOPRIL 10 MG TAB PO SCH (09:34)
[2018-05-30] MEDS: AMIODARONE HCL 200 MG TAB PO SCH ×2 (09:34→21:47)
[2018-05-30] MEDS: METOPROLOL TARTRATE 25 MG TAB PO SCH ×2 (09:34→21:49)
[2018-05-30] MEDS: FLUTICASONE NASAL 120 SPRAYS/16 GM MDI EACHNARE SCH (09:35)
[2018-05-30] MEDS: MAGNESIUM OXIDE 400 MG TAB PO SCH (09:41)
[2018-05-30] MEDS: D5W IV SCH ×2 (09:45→22:03)
[2018-05-30] MEDS: ACYCLOVIR IV SCH ×2 (09:45→22:03)
[2018-05-30] MEDS: FLUCONAZOLE 40 MG/ML UDSYR PO SCH (09:45)
[2018-05-30] MEDS: HYDROCODONE/APAP 5/325 TAB PO PRN ×2 (10:07→18:09)
[2018-05-30] MEDS: SPIRONOLACTONE 25 MG TAB PO SCH (10:08)
--- NOTE | 2018-05-30 11:23 | SOAPPROG ---
SOAP Progress Note Assessment/Plan: Assessment: This is a 67 with advanced HP positive head and neck cancer admitted for mucositis and an episode of syncope. 1. Syncope: Occured after needle removal from port. No further episodes. 2. Hypokalemia/Hypomag,Hypocalcemia: Lytes are improving with replacement. Does have ongoing diarrhea as well. Differential also includes wasting from igiugig. If dirreha resolves and it is still an issue will need to consider further work-up. 3. Neutropenia: ANC improving. Continue filgastrim from now. On antibiotics. Cultures negative. 4. Mucositis: From chemotherapy. Suspect it will improve in the coming week. 5. VT: Likely from #2. Improved. 05/30/18 11:19 Subjective: No acute events overnight. No CP, SOB, abdominal pain. Continues to have diarrhea. eating breakfast with some mild OP pain from mucositis. Objective: Vital Signs Temp Pulse Resp BP Pulse Ox 36.9 C 70 18 137/77 H 98 05/30/18 08:00 05/30/18 09:34 05/30/18 08:00 05/30/18 09:34 05/30/18 08:00 Laboratory Results 05/30/18 05:55 05/30/18 05:55 05/29/18 05/30/18 05/31/18 05:59 05:59 05:59 Intake Total 3277 3408 Output Total 325 Balance 2952 3408 PT 18.3 SEC (12.0-15.0) H 05/28/18 17:20 INR 1.50 (0.83-1.16) H 05/28/18 17:20 Gen: Pleasant, conversant NAD HEENT: OP with mucositis and thrush, EOMI CV: RRR no mgr Pulm: CTAB Abdom: S/nt/nd/bs+ Ext: No cyanosis clubbing or edema ICD10 Worksheet Patient Problems: Problems Problem Status Onset Hypokalemia Acute Syncope Acute
[2018-05-30] MEDS ORDERED: K PHOS 10 MMOL in D5W 250 ML IV ONE (12:00)
--- NOTE | 2018-05-30 13:04 | HOSPPROG ---
Hospitalist Progress Note Assessment/Plan: 67 yo M with PMH of HPV positive head and neck tumor currently undergoing chemotherapy with taxotere, 5 FU and cisplatin with recent diarrhea related to 5FU presenting with syncope found to have severe hypokalemia. Hospital course complicated by VT and now neutropenic fevers. NIC- C yesterday with LVEF of 40%. Etiology likely 2.2 to alcohol use and possibly related to chemo. No BIVAICD per cardiology in setting of neutropenia. -cont lopressor -address neutropenic fever -aldactone 25 added today Ventricular tachycardia: Device interrogated, VT going back to April 09. Coronary angio with no CAD as etiology. No BIVAICD in setting of neutropenic fevers. -cont amio 400 daily -cont pradaxa 150 bid - Continue lopressor 25 bid - Cardiology Following - Aggressive electrolyte repletion, goal K>4 and Mg>2 -monitor QTc Neutropenic fever:. started on filgtastin and responding. - Blood cultures NGTD -continue neupogen -stop vanco, continue cefepime 2g Q8 -cont diflucan 100mg -add acyclovir 5mg/kg BID - Oncology aware -ID consulted, appreciate the help HPV positive SCC of the tongue on induction therapy with TPF chemo. Follows with Dr. Pineda. Oncology consulted on this admission. Synopal episodes: History c/w vagal events but above concerning for arrhythmia. No events on telemetry overnight. continue to monitor. Severe hypokalemia: Both GI and renal losses (urine K very high). The latter is likely a phenomena of his cisplatin therapy (fanconi-like syndrome). - Repleting as above -schedule K TID Diarrhea: Persistent. C diff negative. Likely chemo side effect - Loperamide PRN -lomotil CHAPO: Improved with fluids. Monitor. Contact dermatitis: Involving right chest. Removed tape. Thrombocytopenia: Related to chemo, stable. Afib: Rates controlled. On OAC. S/p ablation and pacemaker placement in 2012 for SSS. Sees outside pit hand. cont pradaxa 150 bid HTN: Holding lisinopril. Etoh use: Was weaning himself off as outpt. 5-6 drinks/night previously. Not in withdrawal. Headache: Trial flexeril with sleep. Likely d/t dehydration and stress. Subjective: tongue still irritated. not hungry Objective: Vital Signs Temp Pulse Resp BP Pulse Ox 36.8 C 69 18 119/79 93 05/30/18 12:00 05/30/18 12:00 05/30/18 12:00 05/30/18 12:00 05/30/18 12:00 Laboratory Results 05/30/18 05:55 05/30/18 05:55 05/29/18 05/30/18 05/31/18 05:59 05:59 05:59 Intake Total 3277 3408 535 Output Total 325 Balance 2952 3408 535 PT 18.3 SEC (12.0-15.0) H 05/28/18 17:20 INR 1.50 (0.83-1.16) H 05/28/18 17:20 - Physical Exam Constitutional: no apparent distress, appears nourished, not in pain Eyes: PERRL, anicteric sclera, EOMI Ears, Nose, Mouth, Throat: moist mucous membranes, hearing normal, ears appear normal, no oral mucosal ulcers Cardiovascular: regular rate and rhythym, no murmur, rub, or gallop Respiratory: no respiratory distress, no rales or rhonchi, clear to auscultation Gastrointestinal: normoactive bowel sounds, soft, non-tender abdomen, no palpable masses Genitourinary: no bladder fullness, no bladder tenderness, no renal bruits Skin: no rashes or abrasions, no fluctuance, no induration Musculoskeletal: full muscle strength, no muscle tenderness, normal joint ROM Neurologic: AAOx3, sensation intact bilaterally Psychiatric: interacting appropriately, not anxious, not encephalopathic, thought process linear Lymph, Heme, Immunologic: no cervical LAD, no supraclavicular LAD ICD10 Worksheet Patient Problems: Problems Problem Status Onset Hypokalemia Acute Syncope Acute
--- NOTE | 2018-05-30 13:43 | PCMIDPN ---
Assessment/Plan: #Neutropenic fever, no fever since 05/27, ANC 460 --continue high-dose cefepime. Could consider step-down to Levaquin complete 7 days of antibiotics tomorrow #Severe mucositis: Patient receiving empiric acyclovir. If continued improvement tomorrow will step-down to p.o. Therapy Medications cefepime 2 g IV Q 8h, #3 Acyclovir 410 mg IV q.12, creatinine 1.0 Micro 05/27 blood cultures (2) NGTD Subjective: Patient hoping to go home tomorrow, eating better today eggs and corn flakes Diarrhea Mouth pain improved Objective: Vital Signs Temp Pulse Resp BP Pulse Ox 36.8 C 69 18 119/79 93 05/30/18 12:00 05/30/18 12:00 05/30/18 12:00 05/30/18 12:00 05/30/18 12:00 Laboratory Results 05/30/18 05:55 05/30/18 05:55 05/29/18 05/30/18 05/31/18 05:59 05:59 05:59 Intake Total 3277 3408 535 Output Total 325 Balance 2952 3408 535 - Physical Exam General Appearance: alert, no apparent distress, obese EENT: pale conjunctiva, other (Severe mucositis involving buccal mucosa, palate , tongue.), No scleral icterus Neck: supple Cardiac/Chest: regular rate, rhythm Abdomen: normal bowel sounds, non-tender, soft Skin: No rash Neuro/Psych: alert, normal mood/affect, oriented x 3 - Line/s Mediport Lines: other (Right chest wall), No drainage, No erythema - Time Spent With Patient Time Spent with Patient: greater than 35 minutes (Reviewed indications for going home) Time Spent with Patient: Greater than 35 minutes spent on this patients care, greater than 50% of time spent counseling, educating, and coordinating care regarding the above mentioned plan. ICD10 Worksheet Patient Problems: Problems Problem Status Onset Hypokalemia Acute Syncope Acute
[2018-05-30] MEDS: FILGRASTIM-SNDZ 480 MCG/0.8 ML SYR SC SCH (14:35)
[2018-05-30] MEDS: POTASSIUM CL 20 MEQ TAB PO SCH ×2 (16:24→21:51)
[2018-05-30] MEDS: CYCLOBENZAPRINE 10 MG TAB PO SCH (21:48)
[2018-05-30] MEDS: CETIRIZINE 10 MG TAB PO PRN (21:50)
[2018-05-31] MEDS: DIPHENOXYLATE/ATROPINE LOMOTIL 1 TAB PO SCH ×2 (06:04→12:32)
[2018-05-31] MEDS: CEFEPIME HCL 2 GM in NS 100 ML IV SCH (06:04)
[2018-05-31] MEDS: NS 1,000 ML IV SCH (06:04)
[2018-05-31] MEDS: NYSTATIN SUSP 500000 UNIT/5 ML UD LIQ PO SCH ×2 (06:04→12:32)
[2018-05-31 07:05] LABS: PLATELET COUNT 73 10^3/uL (150-400)
[2018-05-31] MEDS ORDERED: CALCIUM GLUCONATE 50 ML IV ONE (08:03)
[2018-05-31] MEDS ORDERED: POTASSIUM CL 10 MEQ TAB PO ONE (08:03)
[2018-05-31] MEDS: FLUTICASONE NASAL 120 SPRAYS/16 GM MDI EACHNARE SCH (09:00)
[2018-05-31] MEDS: LISINOPRIL 10 MG TAB PO SCH (09:01)
[2018-05-31] MEDS: ACYCLOVIR IV SCH (09:01)
[2018-05-31] MEDS: D5W IV SCH (09:01)
[2018-05-31] MEDS: AMIODARONE HCL 200 MG TAB PO SCH (09:01)
[2018-05-31] MEDS: METOPROLOL TARTRATE 25 MG TAB PO SCH (09:01)
[2018-05-31] MEDS: DABIGATRAN ETEXILATE MESYL 150 MG CAP PO SCH (09:01)
[2018-05-31] MEDS: SPIRONOLACTONE 25 MG TAB PO SCH (09:01)
[2018-05-31] MEDS: POTASSIUM CL 20 MEQ TAB PO SCH (09:02)
[2018-05-31] MEDS: MAGNESIUM OXIDE 400 MG TAB PO SCH (09:02)
[2018-05-31] MEDS: MBX SOLN 30 ML BOTTLE PO PRN (09:02)
[2018-05-31] MEDS: FLUCONAZOLE 40 MG/ML UDSYR PO SCH (09:08)
--- NOTE | 2018-05-31 10:35 | SOAPPROG ---
SOCANDE Progress Note Assessment/Plan: Assessment: This is a 67-year-old male with a history of permanent atrial fibrillation, sick sinus syndrome, previous pacemaker implantation and a newly diagnosed nonischemic cardiomyopathy. His coronary angiogram did, however, indicate nonobstructive CAD and confirmed his ejection fraction of 40%. Furthermore, pacemaker interrogations have indicated several episodes of sustained ventricular tachycardia without clearly associated symptoms. He has had an episode of syncope which is thought to be vasovagal in nature and which did not correlate temporally with his prior episodes of ventricular tachycardia. Plan: 1. He is on reasonable medications. Since this hospitalization he has been started on beta-janel therapy and amiodarone. 2. Continue ANITRA-inhibitor therapy, Aldactone and systemic anticoagulation in light of his atrial fibrillation. 3. 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 He has plans to visit with his side seam envelope machine operator here in the near future. During that office visit, discussions can be had regarding the utility of an upgrade of his current device to a biventricular pacemaker with or without defibrillator capabilities. 4. From a cardiology perspective I think he is safe for discharge today. 05/31/18 10:42 Subjective: The patient was seen and examined. His chart was reviewed. He has a history of permanent atrial fibrillation, sick sinus syndrome and previous pacemaker implantation. Additionally, he has a recent diagnosis of head neck cancer currently treated with chemotherapy with plans for radiation. He was admitted to the hospital with a neutropenic fever and syncope in his doctors office. He has had episodes of nonsustained ventricular tachycardia in the past. His episode of syncope was thought to be on the basis of a vasovagal event. Interrogation of his permanent pacemaker has indicated episodes of sustained ventricular tachycardia with timing that does not necessarily correlate with the recent episode of syncope. He has undergone an echocardiogram which indicates his ejection fraction was 40% with wall motion abnormalities which prompted coronary angiography which confirmed an ejection fraction of 40% however there was no indication of CAD. Because of the episodes of ventricular tachycardia he has been started on amiodarone. Consideration is being given to upgrade of his current pacemaker to a biventricular pacemaker with or without ICD functionality. He is thought not to be a candidate for that given his neutropenic fever. In talking to him he states he feels well today. He notes no chest pain or dyspnea. He is tolerating his current amiodarone dose. He is currently on systemic anticoagulation in light of his history of atrial fibrillation. Objective: Vital Signs Temp Pulse Resp BP Pulse Ox 36.7 C 70 18 124/84 H 93 05/31/18 08:00 05/31/18 09:01 05/31/18 08:00 05/31/18 09:01 05/31/18 08:00 Laboratory Results 05/31/18 06:10 05/31/18 06:10 05/30/18 05/31/18 06/01/18 05:59 05:59 05:59 Intake Total 3408 2395 Balance 3408 2395 PT 18.3 SEC (12.0-15.0) H 05/28/18 17:20 INR 1.50 (0.83-1.16) H 05/28/18 17:20 Physical Exam - Physical Exam General Appearance: WD/WN, alert, no apparent distress EENT: PERRL/EOMI, normal ENT inspection, pharynx normal, TMs normal Neck: non-tender, full range of motion, supple, normal inspection Respiratory: chest non-tender, lungs clear, normal breath sounds Cardiac/Chest: normal peripheral pulses, regular rate, rhythm, other (healed pacemaker, right sided port appears normal), No edema, No gallop, No JVD Peripheral Pulses: 2+: carotid (R), carotid (L), dorsalis-pedis (L) Abdomen: normal bowel sounds, non-tender, soft Male Genitalia: deferred Rectal: deferred Back: Normal inspection Skin: normal color, warm/dry Lymphatic: no adenopathy Extremities: normal range of motion, non-tender, normal inspection, normal capillary refill Neuro/Psych: no motor/sensory deficits, alert, normal mood/affect, oriented x 3 ICD10 Worksheet Patient Problems: Problems Problem Status Onset Hypokalemia Acute Syncope Acute
--- NOTE | 2018-05-31 11:24 | PCMIDPN ---
Assessment/Plan: #Neutropenic fever, no fever since 05/27, ANC 1900+ --DC cefepime --no Abx at DC --cannot receive FQ bc amiodarone therapy #Severe mucositis, stable exam but eating more --dc IV acyclovir --dc on 5 more days Valtrex 1gm PO Daily --fluconazole per oncology Medications cefepime 2 g IV Q 8h, #4 Acyclovir 410 mg IV q.12, creatinine 1.0 Micro 05/27 blood cultures (2) NGTD Subjective: Patient is feeling better, tolerating food. Still with some mouth pain. Note that a little more pain on the lower lip today Objective: Vital Signs Temp Pulse Resp BP Pulse Ox 36.7 C 70 18 124/84 H 93 05/31/18 08:00 05/31/18 09:01 05/31/18 08:00 05/31/18 09:01 05/31/18 08:00 Laboratory Results 05/31/18 06:10 05/31/18 06:10 05/30/18 05/31/18 06/01/18 05:59 05:59 05:59 Intake Total 3408 2395 Balance 3408 2395 Afebrile General Appearance: alert, no apparent distress, obese EENT: pale conjunctiva,Severe mucositis involving buccal mucosa, palate, tongue , lower lip, No scleral icterus Neck: supple Cardiac/Chest: regular rate, rhythm Abdomen: normal bowel sounds, non-tender, soft Skin: No rash Neuro/Psych: alert, normal mood/affect, oriented x 3 Mediport Right chest wall: No drainage, No erythema - Time Spent With Patient Time Spent with Patient: greater than 25 minutes Time Spent with Patient: Greater than 25 minutes spent on this patients care, greater than 50% of time spent counseling, educating, and coordinating care regarding the above mentioned plan. ICD10 Worksheet Patient Problems: Problems Problem Status Onset Hypokalemia Acute Syncope Acute
--- NOTE | 2018-05-31 11:38 | SOAPPROG ---
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 1. Syncope: Occurred after needle removal from port. No further episodes. 2. Hypokalemia/Hypomag,Hypocalcemia: Improved 3. Neutropenia: Resolved. Continue outpatient follow-up. 4. Mucositis: From chemotherapy, continues to improve. 5. VT: Likely from #2. Improved. 6. Head neck cancer, advanced HPV positive: Follow up with Dr. Gregg on Friday. 05/31/18 11:37 Subjective: No acute events overnight. No CP or SOB. Mucositis continues to improve. Objective: Vital Signs Temp Pulse Resp BP Pulse Ox 36.7 C 70 18 124/84 H 93 05/31/18 08:00 05/31/18 09:01 05/31/18 08:00 05/31/18 09:01 05/31/18 08:00 Laboratory Results 05/31/18 06:10 05/31/18 06:10 05/30/18 05/31/18 06/01/18 05:59 05:59 05:59 Intake Total 3408 2395 Balance 3408 2395 PT 18.3 SEC (12.0-15.0) H 05/28/18 17:20 INR 1.50 (0.83-1.16) H 05/28/18 17:20 General: pleasant, conversant, NAD HEENT: Mucositis looks improve, EOMI, PERRLA Pulmonary: Clear to auscultation bilaterally Cardiovascular: Regular rhythm Extremities: Right-sided port is accessed Skin: No skin lesions ICD10 Worksheet Patient Problems: Problems Problem Status Onset Hypokalemia Acute Syncope Acute
[2018-05-31] MEDS ORDERED: K PHOS 10 MMOL in D5W 250 ML IV ONE (12:00)
[2018-05-31] MEDS: CETIRIZINE 10 MG TAB PO PRN (12:35)
--- NOTE | 2018-05-31 13:56 | ASDISCHSUM ---
Discharge Information Plan Status:Home with No Needs Medically Cleared to Leave: Discharge Date: CM D/C Disposition:Home, Routine, Self-Care ADT D/C Disposition: Projected Discharge Date: Transportation at D/C:Family Discharge Delay Reason: Follow-Up Date: Discharge Slot: Final Diagnosis: Placement Information Patient Contact Information Contact Name:RAS Relationship: Address:[address] [place] [address] Work Phone: City:[place] Alternate Phone: State/Zip Code:[place] [address] Email: Financial Information Financial Class:Medicare Primary Plan Desc:MEDICARE INPATIENT Primary Plan Number:[id number] Secondary Plan Desc:OCTAVIO/MDR SUPPLEMENT Secondary Plan Number:[id number] Assessment Information [facility] CM Progress Note CM Note CM Note Notes: Patient admitted after likely vasovagal event while at [facility]. 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 He lives with his Martha and is normally indepdendent. PT has cleared for home. No d/c needs. Date Signed: 05/25/2018 12:25 PM Electronically Signed By:Swapna Bellamy RN [facility] CM Progress Note CM Note CM Note Notes: Pts case discussed in tx rounds. Pt is not medically stable to d/c at this time. Pt currently on two ivabx. Therapies have cleared pt to d/c home without any needs. CM available for changes. Plan: Independent Date Signed: 05/28/2018 02:00 PM Electronically Signed By:VINI Roe Case Management Discharge Plan Note Case Management Discharge Discharge Order Complete? Answers: Yes Patient to Obtain Answers: via Family Medications Transportation Arranged Answers: Family/Friends Discharge Comments Notes: Pt is being discharged independently. No CM needs identified at this time. Family to transport. Date Signed: 05/31/2018 01:54 PM Electronically Signed By:VINI Vazquez Intervention Information
--- NOTE | 2018-05-31 13:56 | ASMTLACE ---
LACE Length of stay for Answers: 4-6 days current admission Acuity / Level of Answers: Yes Care: Did the patient have an inpatient admission? Comorbidities - select Answers: Any tumor (including all that apply lymphoma or leukemia) Other Notes: AFib; HTN # of Emergency department Answers: 1-2 visits in the last 6 months Score: 11 Date Signed: 05/31/2018 01:56 PM Electronically Signed By:VINI Vazquez
[2018-05-31 13:57] VITALS: BP 116/78
[2018-05-31] MEDS: FILGRASTIM-SNDZ 480 MCG/0.8 ML SYR SC SCH (14:10)
--- NOTE | 2018-05-31 16:24 | PDDCSUM ---
Discharge Summary Discharge Summary: Discharge diagnosis Febrile neutropenia Atrial fibrillation V-tach Squamous cell carcinoma of the tongue Severe hypokalemia Syncope A KI Hypertension Mucositis The patient is a 67-year-old male with past medical history of squamous cell carcinoma of the tongue who is currently on chemotherapy who suffered a syncopal episode at the site of a needle in his oncologist's office. He was taken to the ER for further evaluation where he was found to be profoundly hypokalemic, dehydrated with in a KI. He was started on fluids and potassium supplementation. He was monitored on telemetry and telemetry recorded episodes of V-tach. Because of this the patient had his pacemaker interrogated which did confirm episodes of V-tach. Subsequently an echocardiogram was obtained which showed an mildly reduced LVEF 40%. There was concern for ischemic cardiomyopathy and so he was taken to the cardiac clinical genetics laboratory chief which showed clean coronaries. He was subsequently diagnosed with nonischemic cardiomyopathy with an ejection fraction of approximately 40% which was thought to be due to a history of alcohol abuse for possibly chemotherapy. He was also noted to be neutropenic and developed fevers and mucositis. Infectious Disease was consulted who started the patient on cefepime, acyclovir, and Diflucan. He regionally was started on vancomycin but this was discontinued rather quickly. He was given Neupogen and over the course of his stay his white count improved eventually raising to about 5 on the day of discharge. With the increase in his white count his mucositis resolved as well. He had no further episodes of V -tach and Cardiology started him on amiodarone along with metoprolol for this after checking liver function tests. His hypokalemia was thought to be due to dehydration, poor oral intake in the setting of chemotherapy along with a fanconiE like syndrome from cisplatin. On the day of discharge he was able to tolerate p.o. With no problems had no longer had any fevers for days, had a white count within normal limits and had no further episodes of V-tach. He was discharged in good condition to follow up with his oncologist in 2 days and referral to follow-up [facility]. Discharge disposition Home in good condition Home medications See the discharge med reconciliation list I spent over 30 min on the discharge of this patient
== END 2018-05-31 14:18 | disposition home or self-care (01) | DRG 683 ==
LOC: F2W 17:08
PROVIDERS: ADMIT Internal Medicine; ATTEND Internal Medicine
DX: N17.9 Acute kidney failure, unspecified (principal); I47.2 Ventricular tachycardia; I42.9 Cardiomyopathy, unspecified; E87.6 Hypokalemia; K12.30 Oral mucositis (ulcerative), unspecified; D70.9 Neutropenia, unspecified; R50.81 Fever presenting with conditions classified elsewhere; E86.0 Dehydration; I48.91 Unspecified atrial fibrillation; I10 Essential (primary) hypertension; L25.9 Unspecified contact dermatitis, unspecified cause; R33.9 Retention of urine, unspecified; Z95.0 Presence of cardiac pacemaker; Z88.0 Allergy status to penicillin
CPT/HCPCS: 84484-ER; 96365; 96366; 97112-GP; 97116-GP; 97161-GP; 97165-GO; 97530-GO; 97535-GO; A9500; C8924; J0133; J0610; J0692; J1642; J1644; J2250; J2550; J3010; J3370; J3475; J3480; Q5101; Q9957; Q9967